=== PATIENT | female | born 2000 | race Caucasian/White ===

== ENCOUNTER 2020-08-06 11:00 | Outpatient (RCR) | payer OTHER, SELFPAY | END 2020-10-18 13:44 | disposition other institution (70) | LOC: HO.PT 11:00 | PROVIDERS: PCP Pediatrics; Visit Provider Pediatrics | DX: M54.9 Dorsalgia, unspecified (principal) | CPT/HCPCS: 97110; 97112; 97140; 97161; 97164; 97530 ==

== ENCOUNTER 2021-01-12 21:19 | Emergency (ER) | payer OTHER, SELFPAY ==
[2021-01-12 21:22] VITALS: BP 139/95; PULSE 102; RESP 18; TEMP 37; O2SAT 100; BMI 33.8
[2021-01-13 00:13] VITALS: BP 142/96; PULSE 112; RESP 18; TEMP 36.9; O2SAT 99
--- NOTE | 2021-01-13 00:23 | PC.NURSE ---
IV ACCESS OBTAINED, PT AMB TO BATHROOM WITH STEADY GAIT TO OBTAIN URINE SAMPLE. AWAITING PRIMARY MD GREEN.
[2021-01-13 00:39] LABS: Basophils Percent Auto 0.3 % (0-2); Eosinophils Percent Auto 0.1 % (0-4); Hematocrit 37.6 % (37-47); Hemoglobin 12.5 g/dl (12.0-16.0); Imm Gran Abs Auto 0.03 X10*3/uL (0.00-0.03); Imm Gran Pct Auto 0.3 % (0.0-0.4); Lymphocytes Absolute Auto 1.5 X10*3/uL (1.2-4.9); Lymphocytes Percent Auto 12.1 % (20-40); MANUAL DIFF FLAG NO; Mean Corpuscular HGB Conc 33.2 g/dl (31.0-35.0); Mean Corpuscular Hemoglobin 28.2 pg (27.0-33.0); Mean Corpuscular Volume 84.7 fL (80-98); Mean Platelet Volume 9.4 fL (9.4-12.3); Monocytes Absolute Auto 0.9 X10*3/uL (0.1-1.2); Monocytes Percent Auto 7.4 % (2-11); Neutrophils Absolute Auto 9.6 X10*3/uL (2.0-8.3); Neutrophils Percent Auto 79.8 % (45-73); Platelet Count 335 X10*3/uL (160-400); Red Blood Count 4.44 X10*6/uL (4.20-5.50); Red Cell Distribution Width 12.2 % (11.0-16.0)
[2021-01-13] MEDS: 0.9 % Sodium Chloride 1,000 ML 999 ML IV (00:39)
[2021-01-13] MEDS: ondansetron HCL 4 MG/2 ML VIAL IVPUSH (00:39)
[2021-01-13] MEDS: Famotidine/PF 20 MG/2 ML VIAL IVPUSH (00:39)
[2021-01-13 00:41] LABS: Appearance Urine HAZY; Color Urine YELLOW; Glucose Urine UA NEG (NEG); Leukocyte Esterase Urine 1+ (NEG); Nitrite Urine NEG (NEG); Specific Gravity - Urine 1.025 (1.005-1.025); UACC Culture Trigger YES; Urine Blood NEG (NEG); Urine Ketones 15 MG/DL (NEG); Urine Protein 1+ MG/DL (NEG-TRACE)
[2021-01-13 00:42] LABS: UPreg QC Valid YES; Urine Pregnancy NEGATIVE (NEGATIVE)
--- NOTE | 2021-01-13 00:54 | ED_ITS ---
HPI - General Adult General Chief complaint: General Medical Stated complaint: n/v, not feeling well Time Seen by Provider: 01/13/21 00:30 Source: patient Mode of arrival: ambulatory Limitations: no limitations History of Present Illness HPI narrative: 20-year-old female here with complaints of nausea x 4 days with 3 episodes of vomiting over the last few days. No abdominal pain, diarrhea, constipation, fevers, chills, urinary symptoms. The patient tells me that nausea occurs after eating and is worsened if she lays flat. Related Data Previous Rx's Medication Instructions Recorded nitrofurantoin monohyd/m-cryst 100 mg PO Q12H 5 Days #10 cap 01/13/21 [Macrobid] omeprazole 40 mg PO DAILY #30 cap 01/13/21 ondansetron 4 mg PO Q6H PRN #10 tab 01/13/21 Allergies Allergy/AdvReac Type Severity Reaction Status Date / Time No Known Allergies Allergy Verified 01/12/21 21:22 Review of Systems Review of Systems: Yes all other systems are reviewed and are negative Constitutional: Constitutional: Reports no additional constitutional complaints, Denies body ache(s), Denies chills, Denies fever(s), Denies headache(s) and Denies weakness Eyes: Eyes: Reports no additional eye complaints and Denies change in vision ENT: Reports system reviewed and no additional complaints, except as documented, Denies dizziness, Denies headache(s), Denies nasal congestion, Denies nasal discharge and Denies neck pain Cardiovascular: Cardiovascular: Reports no additional cardiovascular complaints, Denies chest pain, Denies leg edema and Denies dyspnea Respiratory: Respiratory: Reports no additional respiratory complaints, Denies cough and Denies dyspnea Gastrointestinal: Gastrointestinal: Reports no additional gastrointestinal complaints, Denies abdominal pain, Denies diarrhea, Reports nausea and Reports vomiting Genitourinary: Genitourinary: Reports no additional female genitourinary complaints and Denies urinary incontinence Musculoskeletal: Musculoskeletal: Reports no additional musculoskeletal complaints, Denies back pain, Denies arthralgias, Denies joint swelling, Denies neck pain, Denies numbness and Denies tingling Integumentary/Breasts: Skin/Breast: Reports system reviewed and no additional complaints, except as docu and Denies rash Neurologic: Reports system reviewed and no additional complaints, except as documented, Denies Abnormal speech present, Denies dizziness, Denies headache(s), Denies numbness, Denies tingling and Denies weakness PMFSH Past Medical History Attestation statement: The following information was validated with the patient. Source: old records reviewed and nursing notes reviewed Medical History Anxiety Social History Social History Alcohol intake: never Patient Tobacco Use Status: Never used Tobacco Use of substances other than those prescribed or required for medical reasons: No Advance Directives: No Advance Directives Information Provided: No Advance Directives on File: No Patient : No Physical Exam Vital Signs: Vital Signs: Last Vital Signs Temp 98.4 F 01/13/21 00:13 Pulse 112 H 01/13/21 00:13 Resp 18 01/13/21 00:13 BP 142/96 H 01/13/21 00:13 Pulse Ox 99 01/13/21 00:13 Body Mass Index 33.8 Const: General: cooperative, healthy appearing, comfortable and no acute distress Orientation/consciousness: patient oriented x3 Limitations: no limitations HENMT: Head: Yes normal to inspection Ears: hearing grossly normal bilaterally General nose exam: Normal external nose present Face and sinus: Yes normal facial exam Mouth: Normal oral and palatal mucosa present Throat: Yes posterior oropharynx normal Eyes: General: appearance normal, both eyes and all related structures Pupils: Equal, round and reactive pupils present Neck: Neck: Yes normal visual inspection Chest: Chest palpation & inspection: normal inspection of the chest Resp: Effort & Inspection: normal respiratory effort Auscultation: clear to auscultation bilaterally Cardio: Rate: regular rate Rhythm: regular rhythm Peripheral pulses: Peripheral pulses 2+ throughout GI: Inspection: Yes normal to inspection Palpation (GI): Soft to palpation and nontender Auscultation: normal bowel sounds Back/Spine/Pelvis: Thoracic/Lumbar Spine: thoracic and lumbar spine normal to inspection Skin: General skin exam: no rashes or lesions noted Neuro: General: patient oriented x3, no focal motor deficits and normal sensation to monofilament Cranial nerves: Yes Equal, round and reactive pupils present Cognition (Neuro): normal cognition Speech: No Abnormal speech present Gait exam (Neuro): Normal gait present Motor exam (neuro): 5/5 motor strength present throughout Extrem: General: Yes normal to inspection Course Course Course Narrative: 20-year-old female here with complaints of nausea for 4 days with several episodes of vomiting but no associated abdominal pain. Will check labs, a UA, urine . Will give normal saline bolus, antiemetics and PPI and reassess -leukocytosis secondary to vomiting. 1330-labs otherwise are unremarkable. UA is consistent with a UTI. Will treat with course of antibiotics. Vomiting likely secondary to underlying GERD. Patient feeling improved after receiving a PPI, antiemetic and normal saline bolus while here in the emergency department. Refer to GI for further testing as needed. Reviewed worrisome signs and symptoms and when to return to the emergency department. Comfortable discharge home. Medical Decision Making MDM Narrative Medical decision making narrative: Gastritis, GERD, gastroenteritis, Medical Records Medical records reviewed: Yes I reviewed the patient's medical records. Lab Data Lab results reviewed: Yes I reviewed the patient's lab results. Result diagrams: 01/13/21 00:16 01/13/21 00:16 Labs: Lab Results 01/13/21 01/13/21 01/13/21 Range/Units 00:16 00:16 00:16 WBC 12.0 H (4.8-10.8) X10*3/uL RBC 4.44 (4.20-5.50) X10*6/uL Hgb 12.5 (12.0-16.0) g/dl Hct 37.6 (37-47) % MCV 84.7 (80-98) fL MCH 28.2 (27.0-33.0) pg MCHC 33.2 (31.0-35.0) g/dl RDW 12.2 (11.0-16.0) % Plt Count 335 (160-400) X10*3/uL MPV 9.4 (9.4-12.3) fL Immature Gran % (Auto) 0.3 (0.0-0.4) % Neut % (Auto) 79.8 H (45-73) % Lymph % (Auto) 12.1 L (20-40) % [place] % (Auto) 7.4 (2-11) % Eos % (Auto) 0.1 (0-4) % Baso % (Auto) 0.3 (0-2) % Lymph # (Auto) 1.5 (1.2-4.9) X10*3/uL [place] # (Auto) 0.9 (0.1-1.2) X10*3/uL Eos # (Auto) 0.0 (0.0-0.4) X10*3/uL Baso # (Auto) 0.0 (0.0-0.2) X10*3/uL Abs Immat Gran (auto) 0.03 (0.00-0.03) X10*3/uL Absolute Neuts (auto) 9.6 H (2.0-8.3) X10*3/uL Absolute Nucleated RBC 0.000 (0.0-0.012) X10*3/uL Nucleated RBC % (auto) 0.0 (0.0-0.2) /100WBC Sodium 141 (135-145) mmol/L Potassium 4.1 (3.3-5.1) mmol/L Chloride 109 H (96-108) mmol/L Carbon Dioxide 22 (22-29) mmol/L Anion Gap 14 (12-20) BUN 12 (9-16) mg/dL Creatinine 0.72 (0.5-1.4) mg/dL Estim Creat Clear Calc 125.1 Estimated GFR > 60 Random Glucose 97 (60-115) mg/dL Calcium 9.1 (8.4-10.2) mg/dL Total Bilirubin 0.2 (0.0-1.0) mg/dL Direct Bilirubin < 0.2 (0.0-0.5) mg/dL AST 17 (5-31) U/L ALT 9 (0-31) U/L Alkaline Phosphatase 98 (39-117) U/L Total Protein 7.4 (6.5-8.0) g/dL Albumin 4.6 (3.5-5.0) g/dL Lipase 21 (8-78) U/L Urine Color YELLOW Urine Appearance HAZY Urine pH 7.0 (5.0-8.0) Ur Specific [place] 1.025 (1.005-1.025) Urine Protein 1+ H (NEG-TRACE) MG/DL Urine Glucose (UA) NEG (NEG) MG/DL Urine Ketones 15 (NEG) MG/DL Urine Blood NEG (NEG) Urine Nitrite NEG (NEG) Ur Leukocyte Esterase 1+ H (NEG) Urine RBC 0 (0) /HPF Urine WBC 5-9 H (0-4) /HPF Ur Squamous Epith Cells 3+ /LPF Urine Bacteria 2+ /LPF Urine Mucus 2+ /LPF Urine Test (NEGATIVE) 01/13/21 Range/Units 00:17 WBC (4.8-10.8) X10*3/uL RBC (4.20-5.50) X10*6/uL Hgb (12.0-16.0) g/dl Hct (37-47) % MCV (80-98) fL MCH (27.0-33.0) pg MCHC (31.0-35.0) g/dl RDW (11.0-16.0) % Plt Count (160-400) X10*3/uL MPV (9.4-12.3) fL Immature Gran % (Auto) (0.0-0.4) % Neut % (Auto) (45-73) % Lymph % (Auto) (20-40) % [place] % (Auto) (2-11) % Eos % (Auto) (0-4) % Baso % (Auto) (0-2) % Lymph # (Auto) (1.2-4.9) X10*3/uL [place] # (Auto) (0.1-1.2) X10*3/uL Eos # (Auto) (0.0-0.4) X10*3/uL Baso # (Auto) (0.0-0.2) X10*3/uL Abs Immat Gran (auto) (0.00-0.03) X10*3/uL Absolute Neuts (auto) (2.0-8.3) X10*3/uL Absolute Nucleated RBC (0.0-0.012) X10*3/uL Nucleated RBC % (auto) (0.0-0.2) /100WBC Sodium (135-145) mmol/L Potassium (3.3-5.1) mmol/L Chloride (96-108) mmol/L Carbon Dioxide (22-29) mmol/L Anion Gap (12-20) BUN (9-16) mg/dL Creatinine (0.5-1.4) mg/dL Estim Creat Clear Calc Estimated GFR Random Glucose (60-115) mg/dL Calcium (8.4-10.2) mg/dL Total Bilirubin (0.0-1.0) mg/dL Direct Bilirubin (0.0-0.5) mg/dL AST (5-31) U/L ALT (0-31) U/L Alkaline Phosphatase (39-117) U/L Total Protein (6.5-8.0) g/dL Albumin (3.5-5.0) g/dL Lipase (8-78) U/L Urine Color Urine Appearance Urine pH (5.0-8.0) Ur Specific [place] (1.005-1.025) Urine Protein (NEG-TRACE) MG/DL Urine Glucose (UA) (NEG) MG/DL Urine Ketones (NEG) MG/DL Urine Blood (NEG) Urine Nitrite (NEG) Ur Leukocyte Esterase (NEG) Urine RBC (0) /HPF Urine WBC (0-4) /HPF Ur Squamous Epith Cells /LPF Urine Bacteria /LPF Urine Mucus /LPF Urine Test NEGATIVE (NEGATIVE) Discharge Plan Discharge Clinical Impression: UTI (urinary tract infection) GERD (gastroesophageal reflux disease) Qualifiers: Esophagitis presence: esophagitis presence not specified Qualified Code(s): K21.9 - Gastro-esophageal reflux disease without esophagitis Patient Disposition: Home, Self-Care Instructions: Urinary Tract Infection in Women (ED), Gastroesophageal Reflux Disease (ED) Additional Instructions: Increase fluids, rest [place] diet Do not eat within 30 minutes of laying down or sleeping Prescriptions: New omeprazole 40 mg capsule,delayed release(DR/EC) 40 mg PO DAILY Qty: 30 RF: 0 ondansetron 4 mg tablet,disintegrating 4 mg PO Q6H PRN (Reason: nausea and vomiting) Qty: 10 RF: 0 nitrofurantoin monohyd/m-cryst [Macrobid] 100 mg capsule 100 mg PO Q12H 5 Days Qty: 10 RF: 0 Referrals: Denys Phillips [Physician] - 2 days
[2021-01-13 00:55] LABS: Bacteria Urine 2+ /LPF; Mucus Urine 2+ /LPF; RBC Urine 0 /HPF (0); Squamous Epithelial Cell Urine 3+ /LPF
[2021-01-13 01:20] LABS: Alanine Aminotransferase 9 U/L (0-31); Albumin Level 4.6 g/dL (3.5-5.0); Alkaline Phosphatase 98 U/L (39-117); Anion Gap 14 (12-20); Aspartate Amino Transferase 17 U/L (5-31); Bilirubin Direct < 0.2 mg/dL (0.0-0.5); Bilirubin Total 0.2 mg/dL (0.0-1.0); Blood Urea Nitrogen 12 mg/dL (9-16); Calcium 9.1 mg/dL (8.4-10.2); Carbon Dioxide 22 mmol/L (22-29); Chloride 109 mmol/L (96-108); Creatinine Clr Calc Pharmacy 125.1; Estimated Glomerular Filt Rate > 60; Glucose Random 97 mg/dL (60-115); Lipase 21 U/L (8-78); Potassium 4.1 mmol/L (3.3-5.1); Sodium 141 mmol/L (135-145); Total Protein 7.4 g/dL (6.5-8.0)
== END 2021-01-13 02:04 | disposition home or self-care (01) ==
PROVIDERS: Emergency Provider Emergency Medicine Emergency Medical Services; PCP Pediatrics
DX: N39.0 Urinary tract infection, site not specified (principal); K21.9 Gastro-esophageal reflux disease without esophagitis; Z79.899 Other long term (current) drug therapy
CPT/HCPCS: 36415; 80048; 80076; 81001; 81003; 81025; 83690; 85025; 87086; 96361; 96374; 96375; 99284; J2405

== ENCOUNTER 2021-01-27 10:35 | Outpatient (REF) | payer OTHER, SELFPAY ==
[2021-01-28 11:37] LABS: BV Int Neg Control Negative (Negative); BV Int Pos Control Positive (Positive)
[2021-01-28 11:47] LABS: CT PCR NOT DETECTED (Not Detect.); NG PCR NOT DETECTED (Not Detect.)
== END 2021-01-27 10:36 | disposition home or self-care (01) ==
LOC: HO.LAB 10:35
PROVIDERS: Visit Provider Obstetrics & Gynecology
DX: Z11.3 Encounter for screening for infections with a predominantly sexual mode of transmission (principal); B37.3 Candidiasis of vulva and vagina
CPT/HCPCS: 87480; 87491; 87510; 87591; 87660; 99212

== ENCOUNTER 2021-05-04 09:43 | Outpatient (REF) | payer OTHER, SELFPAY | END 2021-05-04 09:44 | disposition home or self-care (01) | LOC: HO.LAB 09:43 | PROVIDERS: Visit Provider Internal Medicine | DX: Z20.822 Contact with and (suspected) exposure to COVID-19 (principal) | CPT/HCPCS: C9803; U0003; U0005 ==

== ENCOUNTER 2021-06-22 12:54 | Outpatient (REF) | payer OTHER, SELFPAY ==
[2021-06-23 10:17] LABS: BV Int Neg Control Negative (Negative); BV Int Pos Control Positive (Positive)
== END 2021-06-22 12:55 | disposition home or self-care (01) ==
LOC: HO.LAB 12:54
PROVIDERS: Visit Provider Advanced Practice Midwife
DX: Z12.4 Encounter for screening for malignant neoplasm of cervix (principal); N89.8 Other specified noninflammatory disorders of vagina; B37.3 Candidiasis of vulva and vagina; L73.8 Other specified follicular disorders; Z20.2 Contact with and (suspected) exposure to infections with a predominantly sexual mode of transmission
CPT/HCPCS: 87480; 87510; 87660; 88142; 99212

== ENCOUNTER 2021-09-08 09:03 | Outpatient (REF) | payer OTHER, SELFPAY ==
[2021-09-08 09:34] LABS: COVID-19 Test Negative (Negative)
== END 2021-09-08 09:04 | disposition home or self-care (01) ==
LOC: HO.LAB 09:03
PROVIDERS: Visit Provider Internal Medicine
DX: Z20.822 Contact with and (suspected) exposure to COVID-19 (principal)
CPT/HCPCS: 87635; C9803

== ENCOUNTER 2022-01-26 10:12 | Outpatient (REF) | payer OTHER, SELFPAY ==
[2022-01-29 13:43] LABS: TS Negative Control Passed; TS Panel A 0; TS Panel B 0; TS Positive Control Passed; TSpotTB Negative (Negative)
== END 2022-01-26 10:13 | disposition home or self-care (01) ==
LOC: HO.LAB 10:12
PROVIDERS: Visit Provider Physician Assistant
DX: Z11.1 Encounter for screening for respiratory tuberculosis (principal)
CPT/HCPCS: 36415; 86481

== ENCOUNTER 2022-03-07 08:21 | Emergency (ER) | payer OTHER, SELFPAY ==
[2022-03-07 08:24] VITALS: BP 130/69; PULSE 114; RESP 16; TEMP 38.1; O2SAT 96; BMI 33.7
--- NOTE | 2022-03-07 09:12 | ED_ITS ---
HPI - Fever General Chief Complaint: Fever Stated Complaint: high fever Time Seen by Provider: 03/07/22 09:06 Source: patient Mode of arrival: ambulatory Limitations: no limitations History of Present Illness HPI Narrative: 21-year-old female previously healthy here with 2 days of chills, subjective fevers, sore throat, headache. Patient has received 2 Pfizer vaccinations for COVID. She did have a sick contact exposure to someone with the flu. She denies any shortness of breath, chest pain, vomiting, diarrhea, abdominal pain, urinary symptoms, neck pain or stiffness. Related Data Home Medications Medication Instructions Recorded Confirmed omeprazole 40 mg capsule,delayed 40 mg PO DAILY 01/25/22 01/25/22 release Previous Rx's Medication Instructions Recorded omeprazole 40 mg capsule,delayed 40 mg PO DAILY #30 caps 01/13/21 release miconazole nitrate 2 % vaginal 1 appful vaginal BEDTIME 7 days 06/22/21 cream (Miconazole-7) #45 grams omeprazole 40 mg capsule,delayed 40 mg PO DAILY #30 caps 01/25/22 release Allergies Allergy/AdvReac Type Severity Reaction Status Date / Time No Known Allergies Allergy Verified 01/25/22 12:32 Review of Systems Review of Systems: Yes all other systems are reviewed and are negative Constitutional: Constitutional: Reports no additional constitutional complaints, Denies body ache(s), Reports chills, Reports fever(s), Reports headache(s) and Denies weakness Eyes: Eyes: Reports no additional eye complaints and Denies change in vision ENT: Reports system reviewed and no additional complaints, except as documented, Denies dizziness, Reports headache(s), Denies nasal congestion, Denies nasal discharge, Denies neck pain and Reports sore throat Cardiovascular: Cardiovascular: Reports no additional cardiovascular complaints, Denies chest pain, Denies leg edema and Denies dyspnea Respiratory: Respiratory: Reports no additional respiratory complaints, Denies cough and Denies dyspnea Gastrointestinal: Gastrointestinal: Reports no additional gastrointestinal complaints, Denies abdominal pain, Denies diarrhea, Denies nausea and Denies vomiting Genitourinary: Genitourinary: Reports no additional female genitourinary complaints and Denies urinary incontinence Musculoskeletal: Musculoskeletal: Reports no additional musculoskeletal complaints, Denies back pain, Denies arthralgias, Denies joint swelling, Denies neck pain, Denies numbness and Denies tingling Integumentary/Breasts: Skin/Breast: Reports system reviewed and no additional complaints, except as docu and Denies rash Neurologic: Reports system reviewed and no additional complaints, except as documented, Denies Abnormal speech present, Denies dizziness, Reports headache(s), Denies numbness, Denies tingling and Denies weakness [facility] Past Medical History Attestation statement: The following information was validated with the patient. Source: old records reviewed and nursing notes reviewed Medical History Anxiety Family History Family History Maternal Grandmother Diabetes Father HTN (hypertension) Mother HTN (hypertension) Social History Social History Alcohol intake: never Patient Tobacco Use Status: Never used Tobacco Advance Directives: No Advance Directives Information Provided: Yes Physical Exam Vital Signs: Vital Signs: Last Vital Signs Temp 100.5 F H 03/07/22 08:24 Pulse 114 H 03/07/22 08:24 Resp 16 03/07/22 08:24 BP 130/69 03/07/22 08:24 Pulse Ox 96 03/07/22 08:24 O2 Del Method 03/07/22 08:24 BMI result Body Mass Index 33.7 Const: General: cooperative, healthy appearing, comfortable and no acute distress Orientation/consciousness: patient oriented x3 Limitations: no limitations HEENT: Head: Yes normal to inspection Ears: hearing grossly normal bilaterally and TM's normal bilaterally General nose exam: Normal external nose present Face and sinus: Yes normal facial exam Mouth: Normal oral and palatal mucosa present Throat: Yes posterior oropharynx normal, Yes tonsils normal and Yes uvula midline Eyes: General: appearance normal, both eyes and all related structures Pupils: Equal, round and reactive pupils present Neck: Neck: Yes normal visual inspection, Yes full ROM, Yes no lymphadenopathy and Yes no meningeal signs Chest: Chest palpation & inspection: normal inspection of the chest Resp: Effort & Inspection: normal respiratory effort Auscultation: clear to auscultation bilaterally Cardio: Rate: regular rate Rhythm: regular rhythm Peripheral pulses: Peripheral pulses 2+ throughout GI: Inspection: Yes normal to inspection Palpation (GI): Soft to palpation and nontender Auscultation: normal bowel sounds Back/Spine/Pelvis: Thoracic/Lumbar Spine: thoracic and lumbar spine normal to inspection Skin: General skin exam: no rashes or lesions noted Neuro: General: patient oriented x3, no meningeal signs, no focal motor deficits and normal sensation to monofilament Cranial nerves: Yes Equal, round and reactive pupils present Cognition (Neuro): normal cognition Speech: No Abnormal speech present Gait exam (Neuro): Normal gait present Motor exam (neuro): 5/5 motor strength present throughout Extrem: General: Yes normal to inspection Course Course Course Narrative: COVID screen is positive. Flu screen is negative. Temp and heart rate improved with ibuprofen. Reviewed quarantine for home. Reviewed supportive care. Reviewed worrisome signs and symptoms of when to return to the emergency department. Comfortable discharge home. MDM - Fever MDM Narrative Medical decision making narrative: 21-year-old female here with URI symptoms for 2 days with associated tactile temps. On arrival patient has a low-grade fever with mild tachycardia. Her exam is otherwise normal. Will send flu and COVID testing. Will provide ibuprofen for her fever Medical Records Attestation: I reviewed the patient's medical records. Lab Data Attestation: I reviewed the patient's lab results. Labs: Lab Results 03/07/22 03/07/22 Range/Units 09:01 09:04 COVID-19 (KRISTEN) Positive A (Negative) COVID-19 Clin Com See Note Influenza Type A (JONELLE) Negative (Negative) Influenza Type B (JONELLE) Negative (Negative) Influenza A & B Note See Note Discharge Plan Discharge Clinical Impression: COVID Patient Disposition: Home, Self-Care Instructions: COVID-19 (Coronavirus Disease 2019) (ED) Additional Instructions: Alternate Motrin and Tylenol for pain or fever Increase fluids, rest Return for shortness of breath, chest pain Flu test is negative Prescriptions: No Action omeprazole 40 mg capsule,delayed release(DR/EC) 40 mg PO DAILY Qty: 30 0RF omeprazole 40 mg capsule,delayed release(DR/EC) 40 mg PO DAILY omeprazole 40 mg capsule,delayed release(DR/EC) 40 mg PO DAILY Qty: 30 0RF miconazole nitrate [Miconazole-7] 2 % cream 1 appful vaginal BEDTIME 7 Days Qty: 45 3RF Referrals: Po,Jassi Piper MD [Primary Care Provider] - 1 week (as needed) Stand Alone Forms: Work/School Release
[2022-03-07] MEDS: Ibuprofen 600 MG TABLET PO (09:13)
[2022-03-07 09:19] LABS: COVID-19 Test Positive (Negative)
[2022-03-07 09:29] LABS: IDNOW Serial# 9DD0AD1C; Influenza A Negative (Negative); Influenza B2 Negative (Negative)
[2022-03-07 10:31] VITALS: BP 118/71; PULSE 95; RESP 18; TEMP 37.3; O2SAT 98
== END 2022-03-07 10:36 | disposition home or self-care (01) ==
PROVIDERS: Emergency Provider Emergency Medicine; PCP Internal Medicine
DX: U07.1 COVID-19 (principal); R50.9 Fever, unspecified; Z79.899 Other long term (current) drug therapy
CPT/HCPCS: 87502; 87635; 99283

== ENCOUNTER 2022-03-13 10:16 | Outpatient (REF) | payer OTHER, SELFPAY ==
[2022-03-13 11:22] LABS: COVID-19 Test Negative (Negative); IDNOW Serial# 16C4AD1C
== END 2022-03-13 10:17 | disposition home or self-care (01) ==
LOC: HO.LAB 10:16
PROVIDERS: Visit Provider Internal Medicine
DX: Z20.822 Contact with and (suspected) exposure to COVID-19 (principal)
CPT/HCPCS: 87635; C9803

== ENCOUNTER 2022-03-16 11:42 | Outpatient (REF) | payer OTHER, SELFPAY ==
--- NOTE | ~2022-03-16 | XR_ITS ---
EXAMINATION: XR CHEST CLINICAL INFORMATION: Acute bronchitis. COMPARISON: None TECHNIQUE: 2 views of the chest were obtained. FINDINGS: Lungs are well-inflated and clear. Trachea is midline in position. No interstitial disease, consolidation or mass. No pleural effusion or pneumothorax. Cardiac silhouette and pulmonary vessels are normal in size. The mediastinum and jimmie have normal contour. The visualized bones, and upper abdomen, are unremarkable. XR/XR chest 2V IMPRESSION: Normal chest radiographs.
== END 2022-03-16 11:43 | disposition home or self-care (01) ==
LOC: HO.HMGCX 11:42
PROVIDERS: PCP Internal Medicine; Visit Provider Internal Medicine
DX: J20.9 Acute bronchitis, unspecified (principal)
CPT/HCPCS: 71046

== ENCOUNTER 2022-04-03 09:38 | Outpatient (REF) | payer OTHER, SELFPAY ==
[2022-04-03 11:21] LABS: COVID-19 Test Negative (Negative); IDNOW Serial# 55D5AD1C
== END 2022-04-03 09:39 | disposition home or self-care (01) ==
LOC: HO.LAB 09:38
PROVIDERS: Visit Provider Internal Medicine
DX: Z20.822 Contact with and (suspected) exposure to COVID-19 (principal)
CPT/HCPCS: 87635; C9803

== ENCOUNTER 2022-06-21 08:32 | Outpatient (REF) | payer OTHER, SELFPAY ==
[2022-06-21 08:54] LABS: MANUAL DIFF FLAG NO
[2022-06-21 09:23] LABS: Basophils Percent Auto 0.5 % (0-2); Eosinophils Absolute Auto 0.1 X10*3/uL (0.0-0.4); Eosinophils Percent Auto 1.8 % (0-4); Hematocrit 37.6 % (37.0-47.0); Imm Gran Abs Auto 0.02 X10*3/uL (0.00-0.03); Imm Gran Pct Auto 0.4 % (0.0-0.4); Lymphocytes Percent Auto 35.4 % (20-40); Mean Corpuscular HGB Conc 31.9 g/dl (31.0-35.0); Mean Corpuscular Volume 84.5 fL (80.0-98.0); Mean Platelet Volume 9.8 fL (9.4-12.3); Monocytes Absolute Auto 0.4 X10*3/uL (0.1-1.2); Monocytes Percent Auto 7.4 % (2-11); Neutrophils Absolute Auto 3.1 x10*3/uL (2.0-8.3); Neutrophils Percent Auto 54.5 % (45-73); Platelet Count 287 X10*3/uL (160-400); Red Blood Count 4.45 X10*6/uL (4.20-5.50); Red Cell Distribution Width 12.7 % (11.0-16.0); White Blood Count 5.7 X10*3/uL (4.8-10.8)
[2022-06-21 10:15] LABS: Vitamin B12 247 pg/mL (200-900)
[2022-06-21 10:16] LABS: Alanine Aminotransferase 7 U/L (0-31); Albumin Level 4.1 g/dL (3.5-5.0); Alkaline Phosphatase 80 U/L (39-117); Anion Gap 14 (12-20); Aspartate Amino Transferase 14 U/L (5-31); Bilirubin Total 0.2 mg/dL (0.0-1.0); Blood Urea Nitrogen 9 mg/dL (9-16); Calcium 9.1 mg/dL (8.4-10.2); Carbon Dioxide 24 mmol/L (22-29); Chloride 106 mmol/L (96-108); Estimated Glomerular Filt Rate > 60; Glucose Fasting 95 mg/dL (60-99); Potassium 4.3 mmol/L (3.3-5.1); Sodium 140 mmol/L (135-145); TSH reflex Free T4 1.01 uIU/mL (0.32-4.0); Total Protein 6.7 g/dL (6.5-8.0); Vitamin D 25-OH Total 7.2 ng/mL (>30)
== END 2022-06-21 08:33 | disposition home or self-care (01) ==
LOC: HO.LAB 08:32
PROVIDERS: PCP Nurse Practitioner Family; Visit Provider Nurse Practitioner Family
DX: Z76.89 Persons encountering health services in other specified circumstances (principal)
CPT/HCPCS: 36415; 80053; 82306; 82607; 82746; 84443; 85025

== ENCOUNTER 2022-08-22 08:53 | Outpatient (REF) | payer OTHER, SELFPAY ==
--- NOTE | ~2022-08-22 | US_ITS ---
EXAMINATION: MM DIAGNOSTIC DIGITAL BREAST TOMOSYNTHESIS, BILATERAL US DIAGNOSTIC ULTRASOUND BREAST, LEFT CLINICAL INFORMATION: 22-year-old female with prior reduction mammoplasty. Patient notes lump past year since surgery posterior upper outer quadrant. No prior breast imaging. No family history breast cancer. COMPARISON: None (current study represents initial baseline exam). TECHNIQUE: Ultrasound is initially performed targeted to the area of clinical concern upper outer breast. Patient is able to point to the area of concern at time of imaging. Grayscale imaging and color Doppler are performed without and with harmonics. Additional imaging of the left axilla was also performed. Subsequently, bilateral digital breast tomosynthesis is performed in both the craniocaudal and mediolateral oblique views along with computer-aided detection (CAD). Synthesized 2D images are generated from the tomosynthesis. FINDINGS: There are scattered areas of fibroglandular density (ACR BI-RADS breast composition Category b). There is a spiculated lesion in area of clinical concern posterior upper outer left breast around 2 cm diameter with some scattered internal calcifications. The remainder the breasts are unremarkable. There is some minor scarring consistent with the reduction mammoplasty. The right breast is unremarkable. The skin contours are smooth. No skin thickening or coarsening of the Fredi's ligaments. Ultrasound left breast demonstrates irregular hypoechoic mass in area of palpable concern posterior 2:30 position measuring approximately 1.5 x 2.0 cm. There are scattered specular echoes corresponding to the calcifications within the lesion. Posterior acoustic shadowing is present. Additional imaging of the left axilla demonstrates no lymphadenopathy. Several nodes are noted with normal manjeet architecture and color flow. Results are discussed with the patient at time of visit. Ultrasound-guided core biopsy of the left breast mass is recommended. Results and recommendation called to medical office supervisor (Radha) for Jerri Guallpa NP on 08/22/2022. US/US breast LT limited IMPRESSION: Left: -Irregular hypoechoic mass with shadowing and internal calcifications in area of palpable concern posterior upper outer left breast measuring around 1.5 x 2.0 cm. -Right: No mammographic evidence of malignancy. ASSESSMENT: BI-RADS 4: Suspicious RECOMMENDATION: Ultrasound-guided biopsy left breast.
== END 2022-08-22 08:54 | disposition home or self-care (01) ==
LOC: HO.MAMMO 08:53
PROVIDERS: PCP Nurse Practitioner Family; Visit Provider Nurse Practitioner Family
DX: N63.21 Unspecified lump in the left breast, upper outer quadrant (principal)
CPT/HCPCS: 76642; 77062; 77066

== ENCOUNTER 2022-08-25 08:47 | Outpatient (REF) | payer OTHER, SELFPAY ==
--- NOTE | ~2022-08-25 | US_ITS ---
PROCEDURE: US GUIDED BREAST BIOPSY, LEFT CLINICAL INFORMATION: Left breast lump COMPARISON: August 22, 2022 PROCEDURAL DETAILS: The details of the procedure, as well as the risks, benefits, and alternatives to the procedure were explained to the patient in detail and all of her questions were answered, after which written informed consent was obtained. Site and side were confirmed. Prior to the procedure, sonography revealed an irregularly marginated hypoechoic region to the 3:00 position left breast 12 cm from the nipple.. A time-out was performed, the lesion intended for biopsy was targeted, and the skin of the left breast was then prepped and draped in the usual sterile fashion. Using sonographic guidance, sterile technique, and 1% lidocaine without epinephrine for local anesthesia, multiple automated core biopsies were obtained through the targeted area with a 14G spring loaded Achieve core biopsy device. There was real-time confirmation of appropriate needle passage. Sampling was documented. At the completion of tissue sampling, a single open coil-shaped metallic clip was deposited at the biopsy site. SPECIMEN: An appropriate sample was obtained. US/US breast ndl core biopsy LT IMPRESSION: 1. No immediate significant complication from ultrasound-guided percutaneous biopsy left breast. 2. Ultrasound was used to localize and guide marker clip placement. 3. Final pathology results are pending. A separate report with final recommendations will be issued once these results are made available.
[2022-08-25] MEDS: Lidocaine HCl 1 % 20 ML VIAL 9 ML SUBCUT (10:54)
[2022-08-25] MEDS: Sodium Bicarbonate 8.4% 50 MEQ/50 ML VIAL SUBCUT (10:56)
== END 2022-08-25 08:48 | disposition home or self-care (01) ==
LOC: HO.MAMMO 08:47
PROVIDERS: PCP Nurse Practitioner Family; Visit Provider Surgery
DX: R92.8 Other abnormal and inconclusive findings on diagnostic imaging of breast (principal); N63.25 Unspecified lump in the left breast, overlapping quadrants
CPT/HCPCS: 19083; 88305; 99202; A4648

== ENCOUNTER → 2022-09-01 10:27 | Outpatient (BNVA) | payer OTHER, SELFPAY | PROVIDERS: PCP Nurse Practitioner Family; Referring Provider Nurse Practitioner Family; Visit Provider Surgery | DX: N63.21 Unspecified lump in the left breast, upper outer quadrant (principal); E27.8 Other specified disorders of adrenal gland; L73.8 Other specified follicular disorders; Z42.8 Encounter for other plastic and reconstructive surgery following medical procedure or healed injury | CPT/HCPCS: 99212 ==

== ENCOUNTER 2023-06-06 10:07 | Outpatient (AMB) | payer OTHER, SELFPAY ==
--- NOTE | 2023-06-06 10:09 | AM.OFFWIN_ITS ---
Intake Vital Signs 06/06/23 10:13 Height 5 ft BP 102/64 Blood Pressure Location Rt brachial Position Sitting Pulse 89 Pulse Source Pulse Oximeter Temp 97 F Temp Source Temporal Artery Scan Pulse Oximetry (%) 98 Oxygen Delivery Method Room Air Intake Visit Reasons: EP RT eye swollen allergy to eye drops Intake Note: Pt is here c/o allergic reaction to polymyxin b sulfate trimethoprim. Pt states her right eye is now swollen. Patient Tobacco Use Status: Never used Tobacco Allergies No Known Allergies Allergy (Verified 06/06/23 10:13) HPI HPI Comments History of Present Illness Details 23-year-old female presents with swellin g to right eye status post using polymyxin b sulfate trimethoprim she reports she was using these drops a few days ago for pinkeye, pinkeye improved however it just became swollen, she reports she just feels a heavy eyelid. No pain w/ eye movment, redneess or warmth surrounding r eye. Denies fevers, chills, headache, vision changes, dizziness, nausea, vomiting PE w/ slight swelling overlying R. eyelid no pain w/ EOM b/l. No overlying errythema or warmth to orbits b/l. No visualized fb in eye concerned for allergic reaction versus stye. Unlikely orbital / periorbital cellulitis, acute closed angle glaucoma, wet macular degeneration or foreign body in eye. Plan Discharge with Benadryl and prednisone. Educated patient on diagnosis and treatment plan, answered all question, patient verbalizes understanding. At this time patient will be discharged home, advised to return with new or worsening symptoms. Educated on worrisome signs and symptoms and when to return. At this time I feel comfortable discharge home. [facility] Medical History Encounter to establish care Acute bronchitis COVID Folliculitis barbae Anxiety Surgical History History of bilateral breast reduction surgery Family History Maternal Grandmother Diabetes Father HTN (hypertension) Mother HTN (hypertension) Social History Housing: House Alcohol intake: never Patient Tobacco Use Status: Never used Tobacco service: No Current occupational status: employed Cognitive needs: No Hearing needs: No Vision needs: Yes Female Reproductive History Menstrual Age of Menarche: 12 Review of Systems Const Details: Constitutional : No Weight loss, No Fever, No Chills, No Fatigue, No Malaise ENT/Mouth : No sore throat, No Rhinorrhea Eyes: No Eye Pain, + Swelling, No Redness Cardiovascular : No Chest Pain, No SOB, No Dyspnea on Exertion, No Orthopnea, No Edema, No Palpitations Respiratory : No Cough, No Sputum, No Wheezing Gastrointestinal : No Nausea, No Vomiting, No Diarrhea, No Constipation, No abdominal Pain, No Hematochezia, No Melena Genitourinary : No Dysuria, No Urinary Frequency, No Hematuria, Musculoskeletal : No joint pain, No Myalgias, No Joint Swelling Skin : No Skin Lesions, No rash Neuro : No Weakness, No Numbness, No Dizziness, No Headache Psych : No Anxiety/Panic, No Depression All other systems reviewed and are negative All systems reviewed & are unremarkable except as noted in HPI and below Physical Exam Vital Signs: Last Vital Signs Temp 97 F 06/06/23 10:13 Pulse 89 06/06/23 10:13 BP 102/64 06/06/23 10:13 Pulse Ox 98 06/06/23 10:13 Oxygen Delivery Method Room Air 06/06/23 10:13 vss Appearance: Alert.? Oriented X3.? No acute distress.? Head: Normocephalic, atraumatic, no step-offs or deformities Eyes: Pupils equal, round and reactive to light.? slight swelling overlying R. eyelid no pain w/ EOM b/l. No overlying errythema or warmth to orbits b/l. No visualized fb in eye Neck: Normal inspection.? Neck supple.? CVS: Normal heart rate and rhythm.? Pulses normal.? Respiratory: No respiratory distress.? Breath sounds normal.? Abdomen: Soft and nontender.? Skin: Skin warm and dry.? Normal skin color.? Normal skin turgor.? Extremities: No lower extremity edema.? No calf ttp. 5/5 strength to bilateral upper and lower extremities Neuro: Oriented X 3.? No motor deficit.? No sensory deficit. CN 2-12 intact Assessment & Plan Assessment & Plan (1) Eye swelling, right: Code(s): H57.89 - Other specified disorders of eye and adnexa Plan Take your medications as prescribed. If you were prescribed antibiotics today, it is important that you take your medication to their entirety, do not skip any doses, do not finish them early. Follow-up with your primary care provider this week. Return to the emergency department with new or worsening symptoms. Such as fevers, chills, chest pain, shortness of breath, nausea, vomiting, dizziness, headache, vision changes, lethargy In case of emergency call 911 Medications: New prednisone 60 mg (3 x 20 mg) PO DAILY 5 days 15 tabs 0RF diphenhydramine HCl (Benadryl) 25 mg PO TID PRN 20 caps 0RF allergy symptoms Coding Level of Care Code Est Pt Level 3 (96559) Diagnoses Eye swelling, right H57.89
[2023-06-06 10:13] VITALS: BP 102/64; PULSE 89; TEMP 36.1; O2SAT 98
== END 2023-06-06 11:25 | disposition home or self-care (01) ==
PROVIDERS: PCP Nurse Practitioner Family; Visit Provider Physician Assistant
DX: H57.89 Other specified disorders of eye and adnexa (principal)
CPT/HCPCS: 99213

== ENCOUNTER 2023-06-18 09:21 | Outpatient (AMB) | payer OTHER, SELFPAY ==
--- NOTE | 2023-06-18 11:35 | MHC.OFFWIV ---
Intake Vital Signs 06/18/23 11:39 Height 5 ft Weight 169 lb BMI 33.0 BP 100/60 Blood Pressure Location Rt brachial Position Sitting Pulse 96 Pulse Source Pulse Oximeter Temp 97.7 F Temp Source Temporal Artery Scan Pulse Oximetry (%) 98 Oxygen Delivery Method Room Air Intake Visit Reasons: EP Allergy reaction [phone] Intake Note: pt is here for allergy reaction in left eye. woke up this morning swollen Patient Tobacco Use Status: Never used Tobacco Allergies polymyxin B Allergy (Verified 06/18/23 11:57) Eye Swelling Medication List - Last Reconciled 06/18/23 by Mehnaz Cole, PIN INSERTER REGULATOR, SOCIAL GROUP WORKER diphenhydramine HCl (Benadryl) 25 mg PO TID PRN No Known Home Meds prednisone 60 mg (3 x 20 mg) PO DAILY 5 days Do you need a note to return to daycare/school/sports/work: No HPI EP Allergy reaction [phone] HPI Details Patient presents to walk-in clinic today for swelling to the left eye lid. She states this happened she last week to the right eye after administering some eyedrops for pinkeye. She states yesterday she felt some discomfort to the left eye so she used the same drops and awoke today with left eyelid swelling. Denies eye pain, headache, discharge from the eye or vision changes. Denies shortness of breath, difficulty swallowing or tongue swelling. [facility] Medical History Encounter to establish care Acute bronchitis COVID Folliculitis barbae Anxiety Surgical History History of bilateral breast reduction surgery Family History Maternal Grandmother Diabetes Father HTN (hypertension) Mother HTN (hypertension) Social History Housing: House Alcohol intake: never Patient Tobacco Use Status: Never used Tobacco service: No Current occupational status: employed Cognitive needs: No Hearing needs: No Vision needs: Yes Female Reproductive History Menstrual Age of Menarche: 12 Review of Systems Const All systems reviewed & are unremarkable except as noted in HPI and below Physical Exam Vital Signs: Last Vital Signs Temp 97.7 F 06/18/23 11:39 Pulse 96 11/27/23 11:39 BP 100/60 06/18/23 11:39 Pulse Ox 98 06/18/23 11:39 Oxygen Delivery Method Room Air 06/18/23 11:39 BMI result Body Mass Index 33.0 General: awake, alert, oriented. Answers questions appropriately. Fully engaged in examination. Skin: warm, dry, intact Cardiac: External chest normal in appearance. Respiratory: No cough, audible wheezing or stridor. Abdomen: without gross distension. MS: No obvious swelling or deformities. Neurological: Oriented to person, place, time and situation. Thought process intact. Psychiatric: Appropriate mood and affect. Good judgment and insight. Eyes Alignment and Position: alignment normal Eyelids: Yes eyelid abnormality (swelling left eyelid) Conjunctivae: conjunctivae normal Sclerae: sclerae normal Corneas: corneas normal Pupils: Equal, round and reactive pupils present Neuro Cranial nerves: Yes Equal, round and reactive pupils present Assessment & Plan Assessment & Plan (1) Allergic reaction: Code(s): T78.40XA - Allergy, unspecified, initial encounter Plan Discontinue antibiotic eye drops. Benadryl 25mg po TID prn Prednisone 60mg daily X 5 days Apply ice/cold compress as needed for discomfort or itching Avoid touching or rubbing the eye Follow up with pcp or return to clinic for any new or worsening symptoms. Medications: Refilled diphenhydramine HCl (Benadryl) 25 mg PO TID PRN 20 caps 0RF allergy symptoms prednisone 60 mg (3 x 20 mg) PO DAILY 5 days 15 tabs 0RF Coding Level of Care Code Est Pt Level 4 (63398) Diagnoses Allergic reaction T78.40XA
[2023-06-18 11:39] VITALS: BP 100/60; PULSE 96; TEMP 36.5; O2SAT 98; BMI 33.0
== END 2023-06-18 11:50 | disposition home or self-care (01) ==
PROVIDERS: PCP Nurse Practitioner Family; Visit Provider Registered Nurse Emergency
DX: T78.40XA Allergy, unspecified, initial encounter (principal); H02.846 Edema of left eye, unspecified eyelid
CPT/HCPCS: 99213

== ENCOUNTER 2023-06-28 10:49 | Outpatient (AMB) | payer OTHER, SELFPAY ==
--- NOTE | 2023-06-28 11:04 | A.OFFPC_ITS ---
Vital Signs 06/28/23 11:08 Height 5 ft Weight 168 lb 2 oz BMI 32.8 BP 100/68 Blood Pressure Location Lt brachial Position Sitting Pulse 103 H Pulse Source Pulse Oximeter Pulse Oximetry (%) 97 Oxygen Delivery Method Room Air Intake Visit Reasons: Swollen right eye Intake Note: Pt presents with swelling on the right side since yesterday, accompanied by dry eyes, indicative of an allergic reaction Dry Wall Installations Mechanic Required: No Accompanied by: Self / Same As Patient Allergies polymyxin B Allergy (Verified 06/28/23 11:21) Eye Swelling Medication List - Last Reconciled 06/28/23 by Onur Dempsey PA-C diphenhydramine HCl (Benadryl) 25 mg PO TID PRN Tobacco use date assessed: 06/28/23 HPI Swollen right eye HPI Details Patient is a 23-year-old female here today for problem visit. Two weeks ago she developed eye swelling and was diagnosed with bacterial conjunctivitis and given Polytrim. Unfortunately had allergic reaction to the eyedrops. She reports having a swollen right over the last 2 days. She did have a recent episode left eye swelling that she was seen at the walk-in clinic and received steroids and Benadryl for the possible allergic reaction. She reports her eye is mostly dry at night. She denies any pain or vision issues. She has changed her pillow sheets and eye makeup. [facility] Medical History Encounter to establish care Acute bronchitis COVID Folliculitis barbae Anxiety Surgical History History of bilateral breast reduction surgery Family History Maternal Grandmother Diabetes Father HTN (hypertension) Mother HTN (hypertension) Social History Housing: House Alcohol intake: never Patient Tobacco Use Status: Never used Tobacco service: No Current occupational status: employed Cognitive needs: No Hearing needs: No Vision needs: Yes Female Reproductive History Menstrual Age of Menarche: 12 Questionnaire Thrive Questionnaire Date Thrive assessed: 06/23/22 ALLISON-7 AMB Questionnaire ALLISON-7 Date ALLISON - 7 assessed: 03/24/22 Source: Developed by Drs. Denys Monk, Bia Mario, Paul Coyne and colleagues, with an educational laurie from [employer]. Review of Systems Const Denies headache(s) Eyes Denies loss of vision ENT Denies vertigo, Denies dizziness, Denies headache(s) and Denies sore throat Card Denies chest pain, Denies leg edema and Denies lightheadedness Resp Denies cough, Denies hemoptysis and Denies wheezing GI Denies abdominal pain, Denies melena, Denies constipation, Denies diarrhea and Denies vomiting Denies urinary frequency, Denies dysuria and Denies urinary urgency Musc Denies arthralgias, Denies joint swelling, Denies numbness and Denies tingling Neuro Denies Abnormal speech present, Denies behavioral changes, Denies vertigo, Denies dizziness, Denies headache(s), Denies loss of vision, Denies memory loss, Denies numbness and Denies tingling Psych Denies anxiety, Denies behavioral changes, Denies depression, Denies memory loss and Denies panic attacks Hesham/Lymph Denies easy bleeding and Denies easy bruising Aller/Immun Denies wheezing Physical exam (Primary Care) Vital Signs: Last Vital Signs Pulse 103 H 06/28/23 11:08 BP 100/68 06/28/23 11:08 Pulse Ox 97 06/28/23 11:08 Oxygen Delivery Method Room Air 06/28/23 11:08 BMI result Body Mass Index 32.8 Tobacco/Smoking Status: Tobacco use Status Tobacco use date assessed 06/28/23 06/28/23 11:16 Patient Tobacco Use Status Never used Tobacco 06/28/23 11:16 Thrive Assessment: Date of Thrive Assessment Date Thrive assessed 06/23/22 06/28/23 11:16 Const General: healthy appearing, no acute distress, alert and awake Nutritional Appearance: well nourished Orientation/consciousness: oriented to person, oriented to place and oriented to time HENMT Ears: TM's normal bilaterally General nose exam: Normal nasal mucous membranes and turbinates present Eyes Other: RIGHT EYE: UPPER LID EDEMA NOTED, NO WATER EAR PURULENT DISCHARGE NOTED Sclerae: sclerae normal Pupils: Equal, round and reactive pupils present Neck Neck: Yes no lymphadenopathy and Yes no JVD Thyroid: Thyroid normal Carotids: no bruits Resp Effort & Inspection: normal respiratory effort and not tachypneic Auscultation: no crackles, no rales, no rhonchi and no wheezes Cardio Rate: regular rate Rhythm: regular rhythm Heart sounds: no murmurs and normal S1 and S2 GI Palpation (GI): Soft to palpation, nontender, no hepatomegaly and no splenomegaly Auscultation: normal bowel sounds Skin General skin exam: no rashes or lesions noted and dry skin Neuro General: oriented to person, oriented to place and oriented to time Cranial nerves: Yes Equal, round and reactive pupils present Speech: No Abnormal speech present Gait exam (Neuro): Normal gait present Motor exam (neuro): no tremor noted Extrem Right upper extremity: full ROM Left upper extremity: full ROM Right lower extremity: full ROM; no edema Left lower extremity: full ROM; no edema Psych Mental Status: mental status grossly normal Speech and movement: Normal speech and movement present Affect: normal affect Attitude: cooperative Thought process: Normal thought process present Assessment and Plan Assessment & Plan (1) Allergic conjunctivitis: Code(s): H10.10 - Acute atopic conjunctivitis, unspecified eye Qualifiers: Laterality: right Qualified Code(s): H10.11 - Acute atopic conjunctivitis, right eye Plan: Patient with recurrent right eye swelling. She does report improved symptoms prednisone. Prior she was prescribed Polytrim eyedrops to which she has had an allergic reaction to. Has changed her eye makeup, pillow sheets ect. Will supply patient with 9 day prednisone taper, advised on antihistamine eyedrops, artificial tears and cool compress over the right eye. (2) Allergic reaction: Code(s): T78.40XA - Allergy, unspecified, initial encounter Qualifiers: Encounter type: initial encounter Qualified Code(s): T78.40XA - Allergy, unspecified, initial encounter (3) Screening for diabetes mellitus (DM): Code(s): Z13.1 - Encounter for screening for diabetes mellitus Orders: Orders Vitamin D 25-OH Total Today R79.89 - Other specified abnormal findings of blood chemistry Comprehensive Camilla. Panel Fast Today Z13.1 - Encounter for screening for diabetes mellitus Medications: New loratadine 10 mg PO BEDTIME 14 days 14 tabs 0RF H10.10 - Acute atopic conjunctivitis, unspecified eye prednisone Take 3 tablets x3 days, 2 tablets x3 days, 1 tablet x3 days 10 mg PO DIRECTED 9 days 18 tabs 0RF H10.10 - Acute atopic conjunctivitis, unspecified eye Coding Level of Care Code Est Pt Level 3 (25838) Diagnoses Allergic conjunctivitis of right eye H10.11 Laterality: right Allergic reaction, initial encounter T78.40XA Encounter type: initial encounter Screening for diabetes mellitus (DM) Z13.1
[2023-06-28 11:08] VITALS: BP 100/68; PULSE 103; O2SAT 97; BMI 32.8
== END 2023-06-28 11:39 | disposition home or self-care (01) ==
PROVIDERS: PCP Nurse Practitioner Family; Visit Provider Physician Assistant
DX: H10.11 Acute atopic conjunctivitis, right eye (principal); T78.40XA Allergy, unspecified, initial encounter; Z13.1 Encounter for screening for diabetes mellitus
CPT/HCPCS: 99213

== ENCOUNTER 2023-07-19 08:57 | Outpatient (REF) | payer OTHER, SELFPAY ==
[2023-07-19 14:03] LABS: CT PCR NOT DETECTED (Not Detect.); NG PCR NOT DETECTED (Not Detect.)
[2023-07-20 15:22] LABS: BV Int Neg Control Negative (Negative); BV Int Pos Control Positive (Positive)
== END 2023-07-19 08:58 | disposition home or self-care (01) ==
LOC: HO.LNP 08:57
PROVIDERS: PCP Nurse Practitioner Family; Visit Provider Advanced Practice Midwife
DX: N89.8 Other specified noninflammatory disorders of vagina (principal); B37.31 Acute candidiasis of vulva and vagina
CPT/HCPCS: 0353U; 87480; 87510; 87660; 99212

== ENCOUNTER 2023-07-19 08:57 | Outpatient (AMB) | payer OTHER, SELFPAY ==
[2023-07-19 09:21] VITALS: BP 114/70; BMI 32.7
--- NOTE | 2023-07-19 09:21 | MHC.OFFVIS ---
Intake Vital Signs 07/19/23 09:21 Height 5 ft Weight 167 lb 8.821 oz BMI 32.7 BP 114/70 Intake Visit Reasons: Vaginal discharge Statistical Machine Mechanic Required: No Information Interpreted: non-clinical & clinical Call Circuit Worker: Call Circuit Worker Present (Noreen Russell ARTURO) Accompanied by: Self / Same As Patient Allergies polymyxin B Allergy (Verified 07/19/23 09:22) Eye Swelling Is last menstrual period known: Yes Last menstrual period: 06/26/23 HPI HPI Comments History of Present Illness Details Patient is here today with concerns that she has a yeast infection, she used a OTC treatment yesterday, feeling better today. She denies any pelvic pain or urinary symptoms. Using condoms. [facility] Medical History Encounter to establish care Acute bronchitis COVID Folliculitis barbae Anxiety Surgical History History of bilateral breast reduction surgery Family History Maternal Grandmother Diabetes Father HTN (hypertension) Mother HTN (hypertension) Social History Housing: House Alcohol intake: never Patient Tobacco Use Status: Never used Tobacco service: No Current occupational status: employed Cognitive needs: No Hearing needs: No Vision needs: Yes Female Reproductive History Menstrual Age of Menarche: 12 Date of last menstrual period: 06/26/23 Review of Systems Const All systems reviewed & are unremarkable except as noted in HPI and below Physical Exam Vital Signs: Last Vital Signs BP 114/70 07/19/23 09:21 BMI result Body Mass Index 32.7 Const General: cooperative, healthy appearing and no acute distress Orientation/consciousness: patient oriented x3 GI Inspection: Yes normal to inspection Palpation (GI): Soft to palpation and Other GI palpation findings present (Nontender) Rectal Exam - Female: visual inspection normal General: Yes bladder normal to palpation External Female Exam: normal appearance of the urethra Speculum Exam - Vagina: normal appearance of the vagina, normal palpation, vaginal bleeding and other (clump of medication) Speculum Exam - Cervix: normal appearance of the cervix and normal palpation Bimanual exam- vagina & uterus: normal bimanual exam, normal palpation, uterine size normal, bladder normal to palpation, normal palpation, uterine shape normal and non-tender Bimanual Exam- Adnexa, other: normal adnexae OB/external & speculum: vaginal bleeding Neuro General: patient oriented x3 Assessment & Plan Assessment & Plan (1) Vaginal itching: Code(s): N89.8 - Other specified noninflammatory disorders of vagina Plan: Discussed: Most likely a yeast infection with initial treatment yesterday and in shown improvement will resolve. Await BV panel for results additional GC chlamydia taken today. Instructions: Clean with warm water, no soaps, scented products. Use a cool cloth to the area several times a day if swollen and/or uncomfortable. Wear loose, cotton underclothes, avoid tight outer clothing. Air when possible. No coitus until well healed. Complete all medications as prescribed. Await final pending results for any changes in the plan of care. Call the office if there is no improvement in 24-48hrs., or if worsening symptoms. Advised to schedule her annual exam. This note is constructed using voice recognition software. While every effort has been made to ensure accuracy, transcription typist errors may have been included. Coding Level of Care Code Est Pt Level 3 (73391) Diagnoses Vaginal itching N89.8
== END 2023-07-19 09:34 | disposition home or self-care (01) ==
LOC: HO.HWS 08:57
PROVIDERS: PCP Nurse Practitioner Family; Visit Provider Advanced Practice Midwife
DX: N89.8 Other specified noninflammatory disorders of vagina (principal)
CPT/HCPCS: 99213

== ENCOUNTER 2023-07-25 09:43 | Outpatient (AMB) | payer OTHER, SELFPAY ==
--- NOTE | 2023-07-25 09:53 | A.OFFVIS_ITS ---
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 Doing well with no concerns. Recently treated for yeast last month and the STD cultures were negative. She tries to eat healthy and stays active with exercise. Regular monthly menses. Currently is sexually active. Using condoms, does not want control. She denies vaginal itching and irritation. STI screening offered; she accepts. Denies family history of breast, ovarian or colon cancer. Last pap smear 2020, negative. 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 Sexual orientation: Straight/Heterosexual Gender identity: Female Cognitive needs: No Hearing needs: No Vision needs: Yes Female Reproductive History Menstrual Age of Menarche: 12 Duration of menses: 3-5 days Date of last menstrual period: 07/19/23 control method: none Total pregnancies: 0 Date of last pap smear: 06/22/21 (neg) Review of Systems Const All systems reviewed & are unremarkable except as noted in HPI and below Reports as per HPI Eyes Reports no additional complaints ENT Reports no additional complaints Card Reports no additional complaints Resp Reports no additional complaints GI Reports as per HPI and Reports no additional complaints Reports as per HPI Musc Reports no additional complaints Skin/Breast Reports as per HPI Neuro Reports no additional complaints Psych Reports no additional complaints Endo Reports no additional complaints Hesham/Lymph Reports no additional complaints Aller/Immun Reports no additional complaints Physical Exam Vital Signs: Last Vital Signs BP 98/56 L 07/25/23 09:54 BMI result Body Mass Index 33.6 Const General: cooperative, healthy appearing, no acute distress, well developed and alert Orientation/consciousness: patient oriented x3 HEENT Head: Yes normal to inspection Eyes General: appearance normal, both eyes and all related structures Neck Neck: Yes normal visual inspection Thyroid: Thyroid normal Chest Other: Bilateral breast reduction scarring Chest palpation & inspection: normal inspection of the chest and other (no puckering, dimpling, peau de orange, retraction, discharge, masses) Breast/axilla inspection: normal inspection of the breasts Breast/axilla palpation: normal palpation of the breasts Resp Effort & Inspection: normal respiratory effort GI Inspection: Yes normal to inspection Palpation (GI): Soft to palpation Rectal Exam - Female: deferred General: Yes bladder normal to palpation External Female Exam: normal external appearance and normal appearance of the urethra Speculum Exam - Vagina: normal appearance of the vagina, normal palpation and normal vaginal discharge Speculum Exam - Cervix: normal appearance of the cervix and normal palpation Bimanual exam- vagina & uterus: normal bimanual exam, normal palpation, uterine size normal, bladder normal to palpation, normal palpation and non-tender Bimanual Exam- Adnexa, other: no masses Skin General skin exam: no rashes or lesions noted Rashes: no rashes Neuro General: patient oriented x3 Cognition (Neuro): normal cognition Extrem General: Yes normal to inspection Psych Attitude: cooperative Thought process: Normal thought process present Assessment & Plan Assessment & Plan (1) Encounter for well woman exam with routine gynecological exam: Code(s): Z01.419 - Encounter for gynecological examination (general) (routine) without abnormal findings Plan Discussed: Current recommendations for pap smears per ASCCP guidelines. Breast awareness and periodic breast exams. Maintain a healthy lifestyle including a well balanced diet and routine exercise. Use condoms for STI and prevention. Discussed control options if interested advised to call back for a follow-up appointment. All of her questions and concerns were addressed to the best of my ability. RTO in one year for annual medication nurse examination. This note is constructed using voice recognition software. While every effort has been made to ensure accuracy, auto body builder apprentice errors may have been included. Orders: Orders Pap Smear Today Z01.419 - Encounter for gynecological examination (general) (routine) without abnormal findings HIV Ab/Ag Today Z20.2 - Contact with and (suspected) exposure to infections with a predominantly sexual mode of transmission Syphilis Screen Today Z20.2 - Contact with and (suspected) exposure to infections with a predominantly sexual mode of transmission Hepatitis C Antibody Today Z20.2 - Contact with and (suspected) exposure to infections with a predominantly sexual mode of transmission Hepatitis B Core Antibody Today Z20.2 - Contact with and (suspected) exposure to infections with a predominantly sexual mode of transmission Coding Level of Care Code Est Pt Prev Care 18-39y(28866) Diagnoses Encounter for well woman exam with routine gynecological exam Z01.419
[2023-07-25 09:54] VITALS: BP 98/56; BMI 33.6
== END 2023-07-25 10:22 | disposition home or self-care (01) ==
PROVIDERS: PCP Nurse Practitioner Family; Visit Provider Advanced Practice Midwife
DX: Z01.419 Encounter for gynecological examination (general) (routine) without abnormal findings (principal)
CPT/HCPCS: 99395

== ENCOUNTER 2023-07-25 09:43 | Outpatient (REF) | payer OTHER, SELFPAY | END 2023-07-25 09:44 | disposition home or self-care (01) | LOC: HO.LNP 09:43 | PROVIDERS: PCP Nurse Practitioner Family; Visit Provider Advanced Practice Midwife | DX: Z01.419 Encounter for gynecological examination (general) (routine) without abnormal findings (principal); Z11.51 Encounter for screening for human papillomavirus (HPV); Z20.2 Contact with and (suspected) exposure to infections with a predominantly sexual mode of transmission | CPT/HCPCS: 88142; 99395 ==

== ENCOUNTER 2023-08-08 10:35 | Outpatient (AMB) | payer OTHER, SELFPAY ==
[2023-08-08 10:54] VITALS: BP 100/60; BMI 34.0
--- NOTE | 2023-08-08 10:54 | MHC.PC.OV ---
Vital Signs 08/08/23 10:54 Height 5 ft Weight 174 lb BMI 34.0 BP 100/60 Blood Pressure Location Lt brachial Position Sitting Intake Visit Reasons: atopic dermatitis Intake Note: Patient here for atopic dermatitis Sales Performance Analyst Required: No Accompanied by: Self / Same As Patient Allergies polymyxin B Allergy (Verified 08/08/23 11:07) Eye Swelling Medication List - Last Reconciled 08/08/23 by Rosalinda Ceballos MD No Known Home Meds Tobacco use date assessed: 08/08/23 Dental Screening Dental Screen Date: 08/08/23 Did you have a dental visit in the last 12 months?: No Did you have a dental problem in the last 6 months where you did not have access to dental care?: No Was dental information given to patient?: Patient has dentist HPI HPI Comments History of Present Illness Details This is a 23-year-old female that complains of eczema in her hands that has been bothering her. There is redness and dryness complicated with some itchiness. She also has nasal congestion and dry cough that started about 2 days ago. No fever. 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 1. Little interest or pleasure in doing things: not at all 2. Feeling down, depressed, or hopeless: not at all 3. Trouble falling or staying asleep, or sleeping too much: not at all 4. Feeling tired or having little energy: not at all 5. Poor appetite or overeating: not at all 6. Feeling bad about yourself - or that you are a failure or have let yourself or your family down: not at all 7. Trouble concentrating on things, such as reading the newspaper or watching television: not at all 8. Moving or speaking so slowly that other people could have noticed. Or the opposite - being so fidgety or restless that you have been moving around a lot more than usual: not at all 9. Thoughts that you would be better off or of hurting yourself in some way: not at all Total score: 0 Depression Screening Interpretation: Negative Depression Screening Done: Yes 61150 - PHQ-9 Billing: Yes Source: Developed by Drs. Denys Monk, Bia Mario, Paul Coyne and colleagues, with an educational laurie from [employer]. Thrive Questionnaire Date Thrive assessed: 08/08/23 I am a: Patient What is your living situation today?: I have a steady place to live Within the past 12 months, did the food you bought not last and you didn't have the money to get more?: Never true Within the past 12 months, did you worry whether your food would run out before you got money to buy more?: Never true Do you have trouble paying for medicines?: No Do you have trouble getting transportation to medical appointments?: No Do you have trouble paying your heating and electricity bill?: No Do you have trouble taking care of your child, family member or friend?: No Do you have trouble with day-to-day activities such as bathing, preparing meals, shopping, managing finances, etc.?: No Are you currently unemployed and looking for a job?: No Are you interested in more education?: No Please select the resources that you would like help with: None AUDIT C Alcohol Use Questionnaire (AUDIT-C) 1. How often do you have a drink containing alcohol?: Never Total Score: 0 ALLISON-7 AMB Questionnaire ALLISON-7 Date ALLISON - 7 assessed: 08/08/23 Feeling nervous, anxious, or on edge: 1 = Several days Not being able to stop or control worryin = Not at all Worrying too much about different things: 0 = Not at all Trouble relaxin = Several days Being so restless that it is hard to sit still: 0 = Not at all Becoming easily annoyed or irritable: 0 = Not at all Feeling afraid as if something awful might happen: 1 = Several days Total ALLISON-7 score (0-4 normal; 5-9 mild; 10-14 moderate; 15-21 severe): 3 Source: Developed by Drs. Denys Monk, Bia Mario, Paul Coyne and colleagues, with an educational laurie from [employer]. ALLISON-7 Assessment Billing ALLISON-7 Assessment Tool: ALLISON-7 Assessment 82832 Review of Systems Const All systems reviewed & are unremarkable except as noted in HPI and below Eyes Reports no additional complaints, Denies change in vision and Denies other visual disturbances Card Denies chest pain at rest, Denies chest pain with activity, Denies edema, Denies irregular heart rhythm, Denies claudication, Denies dyspnea, Denies dyspnea on exertion, Denies orthopnea, Denies paroxysmal nocturnal dyspnea and Denies slow heart rate Resp Denies cough, Denies dyspnea and Denies dyspnea on exertion GI Denies abdominal pain, Denies change in bowel habits, Denies excessive flatus, Denies nausea and Denies vomiting Denies urinary incontinence, Denies urinary hesitancy and Denies urinary urgency Musc Denies atrophy, Denies deformity and Denies limited range of motion Skin/Breast Reports dry skin and Reports erythema Physical exam (Primary Care) Vital Signs: Last Vital Signs BP 100/60 08/08/23 10:54 BMI result Body Mass Index 34.0 Tobacco/Smoking Status: Tobacco use Status Tobacco use date assessed 08/08/23 08/08/23 10:59 Patient Tobacco Use Status Never used Tobacco 08/08/23 10:59 e-Cigarette/Vaping Use Never Used 08/08/23 10:59 PHQ-9: PHQ-9 Score PHQ-9: Total score 0 08/08/23 11:09 Depression Screening Interpretation: Negative Thrive Assessment: Date of Thrive Assessment Date Thrive assessed 08/08/23 08/08/23 10:59 Eyes General: appearance normal, both eyes and all related structures Eyelids: Yes eyelids normal Conjunctivae: conjunctivae normal Neck Neck: Yes normal visual inspection and Yes supple Resp Effort & Inspection: normal respiratory effort Auscultation: clear to auscultation bilaterally Cardio Jugular venous distension: no JVD Rate: regular rate Rhythm: regular rhythm Heart sounds: S1 normal heart sound present and S2 normal heart sound present Skin Other: Redness and dry skin in hands Extrem General: Yes full ROM Assessment and Plan Assessment & Plan (1) Eczema: Code(s): L30.9 - Dermatitis, unspecified Plan: Start steroid ointment. (2) URI (upper respiratory infection): Code(s): J06.9 - Acute upper respiratory infection, unspecified Plan: COVID, flu and RSV ordered. Orders: Orders SARS-CoV2/FLU/RSV Today R09.89 - Other specified symptoms and signs involving the circulatory and respiratory systems Medications: New betamethasone dipropionate 0.05% 1 appl topical DAILY 2 weeks PRN 15 grams 1RF skin irritation L30.9 - Dermatitis, unspecified Coding Level of Care Code Tele Est Pt Level 3 (30194) Diagnoses Eczema L30.9 URI (upper respiratory infection) J06.9 Additional Codes ALLISON-7 Assessment Billing - ALLISON-7 Assessment Tool: ALLISON-7 Assessment 75387 ([id number]) Time Spent (min) 19
== END 2023-08-08 11:14 | disposition home or self-care (01) ==
PROVIDERS: PCP Nurse Practitioner Family; Visit Provider Internal Medicine
DX: L30.9 Dermatitis, unspecified (principal); J06.9 Acute upper respiratory infection, unspecified
CPT/HCPCS: 99213

== ENCOUNTER 2023-08-08 11:19 | Outpatient (REF) | payer OTHER, SELFPAY ==
[2023-08-08 12:54] LABS: Influenza A PCR NEGATIVE (Negative); Influenza B PCR NEGATIVE (Negative); Resp Syncy Virus RNA Qual PCR NEGATIVE (Negative); SARS COV2 PCR INHOUSE POSITIVE (Negative)
== END 2023-08-08 11:20 | disposition home or self-care (01) ==
LOC: HO.LAB 11:19
PROVIDERS: Visit Provider Internal Medicine
DX: R09.89 Other specified symptoms and signs involving the circulatory and respiratory systems (principal); Z11.52 Encounter for screening for COVID-19
CPT/HCPCS: 0241U

== ENCOUNTER 2023-09-27 09:58 | Outpatient (AMB) | payer OTHER, SELFPAY ==
--- NOTE | 2023-09-27 10:21 | MHC.PC.OV ---
Vital Signs 09/27/23 10:25 Height 5 ft Weight 175 lb 4 oz BMI 34.2 BP 104/74 Blood Pressure Location Lt brachial Position Sitting Respiration 16 Pulse 78 Pulse Source Pulse Oximeter Pulse Oximetry (%) 99 Oxygen Delivery Method Room Air Intake Visit Reasons: Transfer of care/[place] Intake Note: Pt is here for Transfer of Care from ADAPTED PHYSICAL EDUCATION AIDE [facility]. Freight Unloader Required: No Accompanied by: Self / Same As Patient Is last menstrual period known: Yes Last menstrual period: 09/15/23 Allergies polymyxin B Allergy (Verified 09/27/23 10:37) Eye Swelling Medication List - Last Reconciled 09/27/23 by Onur Dempsey PA-C hydroxyzine HCl 25 mg PO BID PRN Tobacco use date assessed: 08/08/23 HPI Transfer of care/[facility] HPI Details Patient is a 23-year-old female here today for transfer care visit. Previous PCP was [facility]APTED PHYSICAL EDUCATION AIDE Patient has a past medical history significant for eczema and allergies. .. Eczema: Does use a topical steroid as needed on areas of concern. Advised on moisturizing daily especially after showers. ,, Anxiety: Has been well controlled with only p.r.n. use of hydroxyzine. Has been able to manage her anxiety without daily medication. 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 1. Little interest or pleasure in doing things: not at all 2. Feeling down, depressed, or hopeless: not at all 3. Trouble falling or staying asleep, or sleeping too much: not at all 4. Feeling tired or having little energy: not at all 5. Poor appetite or overeating: not at all 6. Feeling bad about yourself - or that you are a failure or have let yourself or your family down: not at all 7. Trouble concentrating on things, such as reading the newspaper or watching television: not at all 8. Moving or speaking so slowly that other people could have noticed. Or the opposite - being so fidgety or restless that you have been moving around a lot more than usual: not at all 9. Thoughts that you would be better off or of hurting yourself in some way: not at all Total score: 0 Depression Screening Interpretation: Negative Depression Screening Done: Yes 90615 - PHQ-9 Billing: Yes Source: Developed by Drs. Denys Monk, Bia Mario, Paul Coyne and colleagues, with an educational laurie from [employer]. Thrive Questionnaire Date Thrive assessed: 08/08/23 I am a: Patient What is your living situation today?: I have a steady place to live Within the past 12 months, did the food you bought not last and you didn't have the money to get more?: Never true Within the past 12 months, did you worry whether your food would run out before you got money to buy more?: Never true Do you have trouble paying for medicines?: No Do you have trouble getting transportation to medical appointments?: No Do you have trouble paying your heating and electricity bill?: No Do you have trouble taking care of your child, family member or friend?: No Do you have trouble with day-to-day activities such as bathing, preparing meals, shopping, managing finances, etc.?: No Are you currently unemployed and looking for a job?: No Are you interested in more education?: No Please select the resources that you would like help with: None Currently or been in a relationship where the following occur: no concerns reported THRIVE Score: 0 AUDIT C Alcohol Use Questionnaire (AUDIT-C) 1. How often do you have a drink containing alcohol?: Never 3. How often do you have six or more drinks on one occasion?: Never Total Score: 0 ALLISON-7 AMB Questionnaire ALLISON-7 Date ALLISON - 7 assessed: 09/27/23 Feeling nervous, anxious, or on edge: 3 = Nearly every day Not being able to stop or control worryin = Nearly every day Worrying too much about different things: 3 = Nearly every day Trouble relaxin = Nearly every day Being so restless that it is hard to sit still: 3 = Nearly every day Becoming easily annoyed or irritable: 3 = Nearly every day Feeling afraid as if something awful might happen: 2 = More than half the days Total ALLISON-7 score (0-4 normal; 5-9 mild; 10-14 moderate; 15-21 severe): 20 Source: Developed by Drs. Denys Monk, Bia Mario, Paul Coyne and colleagues, with an educational laurie from [employer]. ALLISON-7 Assessment Billing ALLISON-7 Assessment Tool: ALLISON-7 Assessment 28307 Review of Systems Const Denies headache(s) Eyes Denies loss of vision ENT Denies vertigo, Denies dizziness, Denies headache(s) and Denies sore throat Card Denies chest pain, Denies leg edema and Denies lightheadedness Resp Denies cough, Denies hemoptysis and Denies wheezing GI Denies abdominal pain, Denies melena, Denies constipation, Denies diarrhea and Denies vomiting Denies urinary frequency, Denies dysuria and Denies urinary urgency Musc Denies arthralgias, Denies joint swelling, Denies numbness and Denies tingling Neuro Denies Abnormal speech present, Denies behavioral changes, Denies vertigo, Denies dizziness, Denies headache(s), Denies loss of vision, Denies memory loss, Denies numbness and Denies tingling Psych Denies anxiety, Denies behavioral changes, Denies depression, Denies memory loss and Denies panic attacks Hesham/Lymph Denies easy bleeding and Denies easy bruising Aller/Immun Denies wheezing Physical exam (Primary Care) Vital Signs: Last Vital Signs Pulse 78 09/27/23 10:25 Resp 16 09/27/23 10:25 BP 104/74 09/27/23 10:25 Pulse Ox 99 09/27/23 10:25 Oxygen Delivery Method Room Air 09/27/23 10:25 BMI result Body Mass Index 34.2 Tobacco/Smoking Status: Tobacco use Status Tobacco use date assessed 08/08/23 09/27/23 10:21 Patient Tobacco Use Status Never used Tobacco 09/27/23 10:21 e-Cigarette/Vaping Use Never Used 09/27/23 10:21 PHQ-9: PHQ-9 Score PHQ-9: Total score 0 09/27/23 10:28 Depression Screening Interpretation: Negative Thrive Assessment: Date of Thrive Assessment Date Thrive assessed 08/08/23 09/27/23 10:21 Currently or been in a relationship where the following occur: no concerns reported Const General: healthy appearing, no acute distress, alert and awake Nutritional Appearance: well nourished Orientation/consciousness: oriented to person, oriented to place and oriented to time HENMT Ears: TM's normal bilaterally General nose exam: Normal nasal mucous membranes and turbinates present Eyes Conjunctivae: conjunctivae normal Sclerae: sclerae normal Pupils: Equal, round and reactive pupils present Neck Neck: Yes no lymphadenopathy and Yes no JVD Thyroid: Thyroid normal Carotids: no bruits Resp Effort & Inspection: normal respiratory effort and not tachypneic Auscultation: no crackles, no rales, no rhonchi and no wheezes Cardio Rate: regular rate Rhythm: regular rhythm Heart sounds: no murmurs and normal S1 and S2 GI Palpation (GI): Soft to palpation, nontender, no hepatomegaly and no splenomegaly Auscultation: normal bowel sounds Skin General skin exam: no rashes or lesions noted and dry skin Neuro General: oriented to person, oriented to place and oriented to time Cranial nerves: Yes Equal, round and reactive pupils present Speech: No Abnormal speech present Gait exam (Neuro): Normal gait present Motor exam (neuro): no tremor noted Extrem Right upper extremity: full ROM Left upper extremity: full ROM Right lower extremity: full ROM; no edema Left lower extremity: full ROM; no edema Psych Mental Status: mental status grossly normal Speech and movement: Normal speech and movement present Affect: normal affect Attitude: cooperative Thought process: Normal thought process present Assessment and Plan Assessment & Plan (1) Eczema: Code(s): L30.9 - Dermatitis, unspecified Qualifiers: Eczema type: intrinsic Qualified Code(s): L20.84 - Intrinsic (allergic) eczema Plan: As per HPI patient does suffer from with a mild presentation of eczema. She does use topical cream on her areas of concern. Advised on moisturizing daily. (2) Anxiety: Code(s): F41.9 - Anxiety disorder, unspecified Plan: Patient's ALLISON-7 score positive for anxiety which has been existing condition for her. Patient reports her anxiety has been well controlled with only p.r.n. use hydroxyzine. Was seen by mental health therapist in the past has Medications: New hydroxyzine HCl 25 mg PO BID 15 days PRN 30 tabs 1RF anxiety F41.1 - Generalized anxiety disorder Coding Level of Care Code Est Pt Level 4 (93147) Diagnoses Intrinsic eczema L20.84 Eczema type: intrinsic Anxiety F41.9 Additional Codes ALLISON-7 Assessment Billing - ALLISON-7 Assessment Tool: ALLISON-7 Assessment 32140 ([id number])
[2023-09-27 10:25] VITALS: BP 104/74; PULSE 78; RESP 16; O2SAT 99; BMI 34.2
== END 2023-09-27 10:47 | disposition home or self-care (01) ==
PROVIDERS: PCP Nurse Practitioner Family; Visit Provider Physician Assistant
DX: L20.84 Intrinsic (allergic) eczema (principal); F41.9 Anxiety disorder, unspecified
CPT/HCPCS: 99214

== ENCOUNTER 2023-10-20 10:01 | Outpatient (AMB) | payer OTHER, SELFPAY ==
--- NOTE | 2023-10-20 10:54 | MHC.OFFWIV ---
Intake Vital Signs 10/20/23 10:55 Height 5 ft BP 106/74 Blood Pressure Location Rt brachial Position Sitting Pulse 101 H Pulse Source Pulse Oximeter Temp 99.2 F Temp Source Oral Pulse Oximetry (%) 98 Oxygen Delivery Method Room Air Intake Visit Reasons: Worsening cough (Lobby) Intake Note: pt had the flu but she is still coughing and she says she coughs so hard it is making her gag Patient Tobacco Use Status: Never used Tobacco Allergies polymyxin B Allergy (Verified 10/23/23 14:06) Eye Swelling HPI Worsening cough (Lobby) HPI Details Patient is a 23-year-old female comes to the walk-in clinic complaining of persistent coughing fits following diagnosis of influenza a few days ago. No report of taking Tamiflu. 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 Current occupational exposures/hazards: No Sexual orientation: Straight/Heterosexual Gender identity: Female Cognitive needs: No Hearing needs: No Vision needs: Yes Female Reproductive History Menstrual Age of Menarche: 12 Review of Systems Const All systems reviewed & are unremarkable except as noted in HPI and below Physical Exam Vital Signs: Last Vital Signs Temp 99.2 F 10/20/23 10:55 Pulse 101 H 10/20/23 10:55 BP 106/74 10/20/23 10:55 Pulse Ox 98 10/20/23 10:55 Oxygen Delivery Method Room Air 10/20/23 10:55 Const General: cooperative, comfortable, no acute distress, alert, awake, Physically active and well groomed; No anxious, diaphoretic, intoxicated appearing or poor hygiene Nutritional Appearance: average body habitus Orientation/consciousness: oriented to person Limitations: no limitations HEENT Head: Yes normal to inspection, Yes normocephalic and Yes atraumatic Ears: hearing grossly normal bilaterally, external ears normal, TM's normal bilaterally and EAC's normal General nose exam: Normal external nose present, Abnormal mucous membranes and turbinates present and Nasal discharge present Face and sinus: Yes normal facial exam, Yes sinuses nontender and Yes face symmetric Mouth: Normal oral and palatal mucosa present, lip normal, tongue normal and no trismus Throat: Yes uvula midline, Yes abnormal tonsil (mildly erythematous bilaterally), No peritonsillar mass, Yes postnasal drainage, No uvular edema and No cobblestoning Eyes General: appearance normal, both eyes and all related structures Chest Chest palpation & inspection: normal palpation of entire chest wall Resp Effort & Inspection: normal respiratory effort, able to speak in complete sentences, no audible wheezes, no grunting, not labored, no nasal flaring, no retractions and symmetric chest movement Auscultation: clear to auscultation bilaterally, no crackles, no rales, no rhonchi, no wheezes, lung sounds not diminished and No rub present Cardio Other: Rate 100 Rhythm: regular rhythm Skin Other: Good color, warm and dry Neuro General: oriented to person Psych Appearance: grossly normal Mental Status: mental status grossly normal Speech and movement: Normal speech and movement present Affect: normal affect Attitude: cooperative Thought process: Normal thought process present Insight: Good insight present (Psych) Judgement: Good judgement present (Psych) Assessment & Plan Assessment & Plan (1) Cough: Code(s): R05.9 - Cough, unspecified Qualifiers: Cough type: acute Qualified Code(s): R05.1 - Acute cough Plan: Patient is a 23-year-old female with apparent influenza, who comes to the walk-in clinic complaining of persistent coughing fits. She does have an occasional cough with low-grade temperature and she is mildly tachycardic but her lung sounds are clear without rhonchi or wheezing, and no labored or abnormal breathing. Chest x-ray was considered, but patient declines today. Due to her report of coughing until she is gagging, she might just be getting a thick phlegm in the oropharynx that is stimulating her gag reflex. She should continue Mucinex and adequate fluid intake. I did write her for course of prednisone due to her report of coughing until she vomits, as she might be starting to develop a reactive airway or tracheobronchitis. She can also trial benzonatate for the cough. She is to far into the course of her illness to be considered for Tamiflu at this point. She knows to follow up if symptoms persist or worsen, or go to the emergency department with worrisome symptoms. Orders: Orders SARS-CoV2/FLU/RSV 10/20/23 R05.9 - Cough, unspecified Medications: New benzonatate 200 mg PO BID-TID PRN 30 caps 0RF cough prednisone then take 3 tabs for 3 days, then 2 tabs for 3 days, then 1 tab for 3 days. 40 mg (4 x 10 mg) PO DAILY 30 tabs 0RF 3 days azithromycin take 500 mg today (day 1), then 250 mg for 4 days (days 2-5) PO 6 tabs 0RF Coding Level of Care Code Est Pt Level 4 (31939) Diagnoses Acute cough R05.1 Cough type: acute
[2023-10-20 10:55] VITALS: BP 106/74; PULSE 101; TEMP 37.3; O2SAT 98
== END 2023-10-20 13:06 | disposition home or self-care (01) ==
PROVIDERS: PCP Nurse Practitioner Family; Visit Provider Physician Assistant Medical
DX: R05.1 Acute cough (principal)
CPT/HCPCS: 99051; 99214

== ENCOUNTER 2023-10-20 13:37 | Outpatient (REF) | payer OTHER, SELFPAY ==
[2023-10-20 14:44] LABS: Influenza A PCR POSITIVE (Negative); Influenza B PCR NEGATIVE (Negative); Resp Syncy Virus RNA Qual PCR NEGATIVE (Negative); SARS COV2 PCR INHOUSE NEGATIVE (Negative)
== END 2023-10-20 13:38 | disposition home or self-care (01) ==
LOC: HO.LNP 13:37
PROVIDERS: Visit Provider Physician Assistant Medical
DX: R05.9 Cough, unspecified (principal); J06.9 Acute upper respiratory infection, unspecified
CPT/HCPCS: 0241U

== ENCOUNTER 2023-10-21 01:56 | Emergency (ER) | payer OTHER, SELFPAY ==
--- NOTE | ~2023-10-21 | XR_ITS ---
EXAMINATION: XR CHEST CLINICAL INFORMATION: Cough COMPARISON: 03/16/2022 TECHNIQUE: 2 views of the chest were obtained. FINDINGS: The lungs are clear with no focal consolidation. No evidence of pneumothorax, pulmonary edema, or pleural effusions. The cardiomediastinal silhouette is unremarkable. No acute osseous findings. XR/XR chest 2V IMPRESSION: No acute cardiopulmonary findings.
[2023-10-21 01:58] VITALS: BP 109/74; RESP 20; TEMP 37.5; O2SAT 99; BMI 32.5
--- NOTE | 2023-10-21 03:39 | ED_ITS ---
HPI - URI/Sore Throat General Chief Complaint: Upper Respiratory Symptoms Stated Complaint: cough Time Seen by Provider: 10/21/23 03:23 Source: patient Mode of arrival: ambulatory Limitations: no limitations History of Present Illness HPI Narrative: 23 yo female sick for 6 days just tested positive for FLU a at urgent care yesterday. They started her on prednisone, azithromycin she is only taking prednisone. She has no hx of asthma or reactive airways disease. She is here due to persistent cough that will not go away and she cannot sleep. She has chest wall pain and abdominal wall strain from it. No fevers since . Cough is dry and persistent. She is not a smoker. COVID and RSV negative MD elicited complaint: cough Onset (ago): day(s) (6) Consistency: intermittent Severity: moderate Description of mucous: clear Able to tolerate fluids by mouth: Yes Exacerbating factors: exertion Relieving factors: other (has not tried OTC medications, took prednisone) Context: other (dx with flu A) Associated symptoms: rhinorrhea, cough and shortness of breath Treatments prior to arrival: other (prednisone) Related Data Previous Rx's Medication Instructions Recorded hydroxyzine HCl 25 mg tablet 25 mg PO BID PRN anxiety 15 days 09/27/23 #30 tabs azithromycin 250 mg tablet See Rx Instructions PO .COMPLEX #6 10/20/23 tabs benzonatate 200 mg capsule 200 mg PO BID-TID PRN cough #30 10/20/23 caps prednisone 10 mg tablet 40 mg (4 x 10 mg) PO DAILY 3 days 10/20/23 #30 tabs codeine 10 mg-guaifenesin 100 mg/5 5 ml PO Q6H PRN cough #60 mL 10/21/23 mL oral liquid Allergies Allergy/AdvReac Type Severity Reaction Status Date / Time polymyxin B Allergy Eye Verified 10/21/23 02:09 Swelling Review of Systems Review of Systems: Constitutional : No Fever, No Chills ENT/Mouth : No Hoarseness, No sore throat, No Rhinorrhea Eyes: No Redness, No Discharge, No Vision Changes Cardiovascular : No Chest Pain, positive SOB, no Dyspnea on Exertion, No Edema Respiratory : positive Cough, No Sputum, no Wheezing, Gastrointestinal : No Nausea, No Vomiting, No Diarrhea, No abdominal Pain Genitourinary : No Dysuria, No Hematuria Musculoskeletal : No joint pain, No Myalgias Skin : No rash Neuro : No Weakness, No Numbness, No Headache All other systems reviewed and are negative [facility] Past Medical History Attestation statement: The following information was validated with the patient. 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 Oriented X3. No acute distress. Eyes: Pupils equal, round and reactive to light. ENT: Pharynx normal. Neck: Normal inspection. Neck supple. CVS: Normal heart rate and rhythm. Pulses normal. Respiratory: No respiratory distress. Breath sounds normal. no wheezes dry intermittent cough Abdomen: Soft and nontender. Skin: Skin warm and dry. Normal skin color. Normal skin turgor. Extremities: No lower extremity edema. No calf ttp Neuro: Oriented X 3. No motor deficit. No sensory deficit. Medical Decision Making Medical Decision Making MDM Narrative: 23 yo female with URI symptoms and dx with flu yesterday here with persistent cough - but otherwise states she is doing okay has no hx of smoking or asthma. No wheezes on exam, no focal consolidation on CXR will ask her to hold prednisone and start on anti tussive. she denies concern for . No hypoxia no toxic appearing cough is dry Differential Diagnosis Differential Diagnoses: The differential diagnosis associated with the presentation includes cough associated with flu, pneumonia Admission/Observation Consideration of admission/observation: Escalation of care including admission/observation considered no hypoxia not toxic Lab Data MDM Lab Attestation statement: I reviewed the patient's lab results. flu A yesterday Independent Interpretation I performed an independent interpretation of an: Plain X-Ray (no consolidation) Radiology Impression Discussion of test interpretation with radiology: I have reviewed the radiologist's reading. Independent Historian Clinical information obtained from an independent historian. History obtained from or confirmed by: Friend External Record Review External record reviewed: Office record Prescription Management I considered prescription management with: Other Discharge Plan Discharge Clinical Impression: Influenza Cough Qualifiers: Cough type: acute Qualified Code(s): R05.1 - Acute cough Patient Disposition: Home, Self-Care Instructions: Influenza (ED), Acute Cough (ED) Additional Instructions: take cough medication as needed. return for worsening symptoms, shortness of breathing, pain, or any other concerns. can stop the prednisone. Prescriptions: New codeine-guaifenesin 10-100 mg/5 mL liquid 5 ml PO Q6H PRN (Reason: cough) Qty: 60 0RF No Action hydroxyzine HCl 25 mg tablet 25 mg PO BID PRN (Reason: anxiety) 15 Days Qty: 30 1RF benzonatate 200 mg capsule 200 mg PO BID-TID PRN (Reason: cough) Qty: 30 0RF azithromycin 250 mg tablet See Rx Instructions PO .COMPLEX Qty: 6 0RF Rx Instructions: take 500 mg today (day 1), then 250 mg for 4 days (days 2-5) PO prednisone 10 mg tablet 40 mg PO DAILY 3 Days Qty: 30 0RF Rx Instructions: then take 3 tabs for 3 days, then 2 tabs for 3 days, then 1 tab for 3 days.
[2023-10-21] MEDS: guaiFEN/Codeine SF 200/20/10ML 10 ML LIQUID 5 ML PO (04:51)
[2023-10-21 04:58] VITALS: BP 116/70; PULSE 82; RESP 16; TEMP 37
== END 2023-10-21 05:01 | disposition home or self-care (01) ==
PROVIDERS: Emergency Provider Emergency Medicine
DX: J11.1 Influenza due to unidentified influenza virus with other respiratory manifestations (principal); R05.1 Acute cough
CPT/HCPCS: 71046; 99282; 99283

== ENCOUNTER 2023-10-23 13:56 | Outpatient (AMB) | payer OTHER, SELFPAY ==
--- NOTE | 2023-10-23 13:57 | A.OFFPC_ITS ---
Vital Signs 10/23/23 13:58 Height 5 ft 1 in Weight 172 lb 2 oz BMI 32.5 BP 100/56 L Blood Pressure Location Lt brachial Position Sitting Respiration 17 Pulse 88 Pulse Source Pulse Oximeter Pulse Oximetry (%) 98 Oxygen Delivery Method Room Air Intake Visit Reasons: flu/cough symptoms Intake Note: The patient is here due to a persistent cough after testing [place] for [place] [facility] [place], followed by a visit to urgent care for bronchitis. [employer] Required: No Accompanied by: Self / Same As Patient Allergies polymyxin B Allergy (Verified 10/23/23 14:06) Eye Swelling Medication List - Last Reconciled 10/23/23 by Onur Dempsey PA-C azithromycin take 500 mg today (day 1), then 250 mg for 4 days (days 2-5) PO codeine-guaifenesin 10-100 mg/5 mL 5 mL PO Q6H PRN codeine-guaifenesin 10-100 mg/5 mL 5 mL PO Q6H PRN hydroxyzine HCl 25 mg PO BID PRN 15 days Tobacco use date assessed: 08/08/23 Dental Screening Dental Screen Date: 08/08/23 HPI flu/cough symptoms HPI Details Patient is a 23-year-old female here today for an ER follow-up visit. Was recently diagnosed with the flu on October 19. She has been having a bronchial type cough. Was supply with prednisone, antibiotics and cough suppressant tablets. Patient reports she continues to a dry cough. Otherwise her fever has gone away. She has been codeine cough syrup by the ER Laboratory Tests 10/20/23 10:01 Influenza Type A ( PCR) POSITIVE A [facility] Medical History Encounter to establish care Acute bronchitis COVID Folliculitis barbae Anxiety Surgical History History of bilateral breast reduction surgery Family History Maternal Grandmother Diabetes Father HTN (hypertension) Mother HTN (hypertension) Social History Housing: House Alcohol intake: never Patient Tobacco Use Status: Never used Tobacco e-Cigarette/Vaping Use: Never Used Second Hand Smoke Exposure: No service: No Current occupational status: employed 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 Denys Monk, Bia Mario, Paul Coyne and colleagues, with an educational laurie from [employer]. Review of Systems Const Denies headache(s) Eyes Denies loss of vision ENT Denies vertigo, Denies dizziness, Denies headache(s) and Denies sore throat Card Denies chest pain, Denies leg edema and Denies lightheadedness Resp Reports cough and Denies wheezing GI Denies abdominal pain, Denies melena, Denies constipation, Denies diarrhea and Denies vomiting Denies urinary frequency, Denies dysuria and Denies urinary urgency Musc Denies arthralgias, Denies joint swelling, Denies numbness and Denies tingling Neuro Denies Abnormal speech present, Denies behavioral changes, Denies vertigo, Denies dizziness, Denies headache(s), Denies loss of vision, Denies memory loss, Denies numbness and Denies tingling Psych Denies anxiety, Denies behavioral changes, Denies depression, Denies memory loss and Denies panic attacks Hesham/Lymph Denies easy bleeding and Denies easy bruising Aller/Immun Denies wheezing Physical exam (Primary Care) Vital Signs: Last Vital Signs Pulse 88 10/23/23 13:58 Resp 17 10/23/23 13:58 BP 100/56 L 10/23/23 13:58 Pulse Ox 98 10/23/23 13:58 Oxygen Delivery Method Room Air 10/23/23 13:58 BMI result Body Mass Index 32.5 Tobacco/Smoking Status: Tobacco use Status Tobacco use date assessed 08/08/23 10/23/23 14:00 Patient Tobacco Use Status Never used Tobacco 10/23/23 14:00 e-Cigarette/Vaping Use Never Used 10/23/23 14:00 Thrive Assessment: Date of Thrive Assessment Date Thrive assessed 08/08/23 10/23/23 14:00 Const General: healthy appearing, no acute distress, alert and awake Nutritional Appearance: well nourished Orientation/consciousness: oriented to person, oriented to place and oriented to time HENMT Ears: TM's normal bilaterally General nose exam: Normal nasal mucous membranes and turbinates present Eyes Conjunctivae: conjunctivae normal Sclerae: sclerae normal Pupils: Equal, round and reactive pupils present Neck Neck: Yes no lymphadenopathy and Yes no JVD Thyroid: Thyroid normal Carotids: no bruits Resp Effort & Inspection: normal respiratory effort and not tachypneic Auscultation: no crackles, no rales, no rhonchi and no wheezes Cardio Rate: regular rate Rhythm: regular rhythm Heart sounds: no murmurs and normal S1 and S2 GI Palpation (GI): Soft to palpation, nontender, no hepatomegaly and no splenomegaly Auscultation: normal bowel sounds Skin General skin exam: no rashes or lesions noted and dry skin Neuro General: oriented to person, oriented to place and oriented to time Cranial nerves: Yes Equal, round and reactive pupils present Speech: No Abnormal speech present Gait exam (Neuro): Normal gait present Motor exam (neuro): no tremor noted Extrem Right upper extremity: full ROM Left upper extremity: full ROM Right lower extremity: full ROM; no edema Left lower extremity: full ROM; no edema Psych Mental Status: mental status grossly normal Speech and movement: Normal speech and movement present Affect: normal affect Attitude: cooperative Thought process: Normal thought process present Assessment and Plan Assessment & Plan (1) Influenza: Code(s): J11.1 - Influenza due to unidentified influenza virus with other respiratory manifestations Plan: Was positive for flu 10/20/2023. Has continued upper respiratory bronchitis. Advised on using cough suppressant tablets, rest, increase fluids Of note chest x-ray without any pulmonary infiltrate. (2) URI (upper respiratory infection): Code(s): J06.9 - Acute upper respiratory infection, unspecified Qualifiers: URI type: unspecified viral URI Qualified Code(s): J06.9 - Acute upper respiratory infection, unspecified Plan: As above Medications: New guaifenesin ER (Mucinex) 600 mg PO BID 14 tabs 0RF 7 days J06.9 - Acute upper respiratory infection, unspecified Coding Level of Care Code Est Pt Level 3 (25991) Diagnoses Influenza J11.1 Viral upper respiratory tract infection J06.9 URI type: unspecified viral URI
[2023-10-23 13:58] VITALS: BP 100/56; PULSE 88; RESP 17; O2SAT 98; BMI 32.5
== END 2023-10-23 15:13 | disposition home or self-care (01) ==
PROVIDERS: PCP Physician Assistant; Visit Provider Physician Assistant
DX: J06.9 Acute upper respiratory infection, unspecified (principal)
CPT/HCPCS: 99213

== ENCOUNTER 2024-01-02 15:07 | Outpatient (AMB) | payer OTHER, SELFPAY ==
--- NOTE | 2024-01-02 15:07 | AM.OFFWIN_ITS ---
Intake Vital Signs 01/02/24 15:09 Height 5 ft 1 in Weight 182 lb 2 oz BMI 34.4 BP 104/76 Blood Pressure Location Lt brachial Position Sitting Pulse 88 Pulse Source Pulse Oximeter Pulse Oximetry (%) 98 Oxygen Delivery Method Room Air Intake Visit Reasons: EP pain/pressure when urinating Patient Tobacco Use Status: Never used Tobacco Allergies polymyxin B Allergy (Verified 01/02/24 15:15) Eye Swelling Medication List - Last Reconciled 01/02/24 by Prabhjot Marroquin MD No Known Home Meds Do you need a note to return to daycare/school/sports/work: Yes HPI EP pain/pressure when urinating HPI Details 23-year-old female came in today to be e valuated for possible urine infection Patient says that since yesterday when she urinate she feels burning initially There is no pelvic pain, there is no back pain There is no nausea vomiting There is no fever no chills UA does not show any signs of infection There is a possibility of urethritis I have sent Macrobid 100 mg b.i.d. 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 Current occupational exposures/hazards: No Sexual orientation: Straight/Heterosexual Gender identity: Female Cognitive needs: No Hearing needs: No Vision needs: Yes Female Reproductive History Menstrual Age of Menarche: 12 Review of Systems Const All systems reviewed & are unremarkable except as noted in HPI and below Physical Exam Vital Signs: Last Vital Signs Pulse 88 01/02/24 15:09 BP 104/76 01/02/24 15:09 Pulse Ox 98 01/02/24 15:09 Oxygen Delivery Method Room Air 01/02/24 15:09 BMI result Body Mass Index 34.4 Const General: no acute distress Orientation/consciousness: patient oriented x3 Eyes General: appearance normal, both eyes and all related structures Resp Effort & Inspection: normal respiratory effort and able to speak in complete sentences General: Yes no CVA tenderness Back/Spine/Pelvis Back: no CVA tenderness Neuro General: patient oriented x3 Psych Mental Status: mental status grossly normal Assessment & Plan Assessment & Plan (1) Dysuria: Code(s): R30.0 - Dysuria Plan 23-year-old female came in today to be evaluated for possible urine infection Patient says that since yesterday when she urinate she feels burning initially There is no pelvic pain, there is no back pain There is no nausea vomiting There is no fever no chills UA does not show any signs of infection There is a possibility of urethritis I have sent Macrobid 100 mg b.i.d. for 3 days Medications: New nitrofurantoin monohyd/m-cryst 100 mg (Macrobid) must administer with a meal/food 100 mg PO Q12H 6 caps 0RF 3 days Coding Level of Care Code Est Pt Level 3 (64226) Diagnoses Dysuria R30.0
[2024-01-02 15:09] VITALS: BP 104/76; PULSE 88; O2SAT 98; BMI 34.4
== END 2024-01-02 15:23 | disposition home or self-care (01) ==
PROVIDERS: PCP Physician Assistant; Visit Provider Internal Medicine
DX: R30.0 Dysuria (principal)
CPT/HCPCS: 99213

== ENCOUNTER 2024-06-30 14:44 | Outpatient (AMB) | payer OTHER, SELFPAY ==
--- NOTE | 2024-06-30 15:00 | MHC.PC.OV ---
Vital Signs 06/30/24 15:01 Height 5 ft 1 in Weight 196 lb BMI 37.0 BP 130/70 Blood Pressure Location Rt brachial Position Sitting Pulse 92 Pulse Source Pulse Oximeter Pulse Oximetry (%) 98 Oxygen Delivery Method Room Air Intake Visit Reasons: F/U physical Intake Note: Patient is here today for a physical. Flute Teacher Required: No Hvac/R Instructor: Not Required per policy Accompanied by: Self / Same As Patient Allergies polymyxin B Allergy (Verified 06/30/24 15:19) Eye Swelling Medication List - Last Reconciled 06/30/24 by Brenda Schroeder PA-C No Known Home Meds Tobacco use date assessed: 06/30/24 Dental Screening Dental Screen Date: 08/08/23 Did you have a dental visit in the last 12 months?: No Was dental information given to patient?: Patient has dentist HPI F/U physical HPI Details 24 year old female with past history of GERD, anxiety, obesity, ALLISON last seen by PA coming in for annual exam. Today she tells us she has been using hydroxyzine as needed for anxiety and uses them very rarely. She is up-to-date on her Pap smears and follows with Gynecology regularly. She does mentioned she has increased constipation due to a poor diet. 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 1. Little interest or pleasure in doing things: not at all 2. Feeling down, depressed, or hopeless: not at all 3. Trouble falling or staying asleep, or sleeping too much: not at all 4. Feeling tired or having little energy: not at all 5. Poor appetite or overeating: not at all 6. Feeling bad about yourself - or that you are a failure or have let yourself or your family down: not at all 7. Trouble concentrating on things, such as reading the newspaper or watching television: not at all 8. Moving or speaking so slowly that other people could have noticed. Or the opposite - being so fidgety or restless that you have been moving around a lot more than usual: not at all 9. Thoughts that you would be better off or of hurting yourself in some way: not at all Total score: 0 Depression Screening Interpretation: Negative Depression Screening Done: Yes Source: Developed by Drs. Denys Monk, Bia Mario, Paul Coyne and colleagues, with an educational laurie from [employer]. Thrive Questionnaire Date Thrive assessed: 06/30/24 I am a: Patient What is your living situation today?: I choose not to answer this question Within the past 12 months, did the food you bought not last and you didn't have the money to get more?: I choose not to answer this question Within the past 12 months, did you worry whether your food would run out before you got money to buy more?: I choose not to answer this question Do you have trouble paying for medicines?: I choose not to answer this question Do you have trouble getting transportation to medical appointments?: I choose not to answer this question Do you have trouble paying your heating and electricity bill?: I choose not to answer this question Do you have trouble taking care of your child, family member or friend?: I choose not to answer this question Do you have trouble with day-to-day activities such as bathing, preparing meals, shopping, managing finances, etc.?: I choose not to answer this question Are you currently unemployed and looking for a job?: I choose not to answer this question Are you interested in more education?: I choose not to answer this question Please select the resources that you would like help with: Transportation and None Currently or been in a relationship where the following occur: I choose not to answer THRIVE Score: 0 AUDIT C Alcohol Use Questionnaire (AUDIT-C) 1. How often do you have a drink containing alcohol?: Never Total Score: 0 ALLISON-7 AMB Questionnaire ALLISON-7 Date ALLISON - 7 assessed: 06/30/24 Feeling nervous, anxious, or on edge: 0 = Not at all Not being able to stop or control worryin = Not at all Worrying too much about different things: 0 = Not at all Trouble relaxin = Not at all Being so restless that it is hard to sit still: 0 = Not at all Becoming easily annoyed or irritable: 0 = Not at all Feeling afraid as if something awful might happen: 0 = Not at all Total ALLISON-7 score (0-4 normal; 5-9 mild; 10-14 moderate; 15-21 severe): 0 Source: Developed by Drs. Denys Monk, Bia Mario, Paul Coyne and colleagues, with an educational laurie from [employer]. Review of Systems Const Denies body aches, Denies fatigue, Denies fever(s), Denies frequent falls, Denies headache(s) and Denies weakness Eyes Reports no additional complaints and Denies change in vision ENT Denies dysphagia, Denies dizziness, Denies facial pain, Denies headache(s), Denies nasal congestion and Denies odynophagia Card Denies chest pain, Denies syncope, Denies leg edema, Denies lightheadedness and Denies dyspnea Resp Denies cough and Denies dyspnea GI Denies abdominal pain, Reports constipation, Denies dysphagia, Denies dyspepsia, Denies diarrhea, Denies nausea, Denies odynophagia and Denies vomiting Denies urinary frequency, Denies dysuria, Denies urinary hesitancy and Denies urinary urgency Musc Denies back pain and Denies myalgias Skin/Breast Reports system reviewed and no additional complaints, except as documented Neuro Denies dizziness, Denies syncope, Denies frequent falls, Denies headache(s) and Denies weakness Psych Reports no additional complaints Endo Denies fatigue Physical exam (Primary Care) Vital Signs: Last Vital Signs Pulse 92 06/30/24 15:01 BP 130/70 06/30/24 15:01 Pulse Ox 98 06/30/24 15:01 Oxygen Delivery Method Room Air 06/30/24 15:01 BMI result Body Mass Index 37.0 Tobacco/Smoking Status: Tobacco use Status Tobacco use date assessed 06/30/24 06/30/24 15:08 Patient Tobacco Use Status Never used Tobacco 06/30/24 15:00 e-Cigarette/Vaping Use Never Used 06/30/24 15:00 PHQ-9: PHQ-9 Score PHQ-9: Total score 0 06/30/24 15:18 Depression Screening Interpretation: Negative Thrive Assessment: Date of Thrive Assessment Date Thrive assessed 06/30/24 06/30/24 15:08 Currently or been in a relationship where the following occur: I choose not to answer Const General: cooperative, healthy appearing, comfortable and no acute distress Orientation/consciousness: patient oriented x3 HENMT Head: Yes normocephalic Ears: hearing grossly normal bilaterally, external ears normal, TM's normal bilaterally and EAC's normal General nose exam: Normal external nose present Face and sinus: Yes normal facial exam and Yes sinuses nontender Mouth: Normal oral and palatal mucosa present and tongue normal Throat: Yes posterior oropharynx normal Eyes General: appearance normal, both eyes and all related structures Conjunctivae: conjunctivae normal Pupils: Equal, round and reactive pupils present EOM: EOMs intact bilaterally and No Nystagmus present Neck Neck: Yes normal visual inspection, Yes full ROM and Yes no lymphadenopathy Chest Chest palpation & inspection: normal inspection of the chest Resp Effort & Inspection: normal respiratory effort Auscultation: clear to auscultation bilaterally, no crackles, no rales, no rhonchi, no wheezes and breath sounds present Cardio Rate: regular rate Rhythm: regular rhythm Peripheral pulses: radial pulses present and dorsalis pedis present GI Inspection: Yes normal to inspection and No Abdominal wall edema Palpation (GI): Soft to palpation, not firm and nontender Auscultation: normal bowel sounds Rectal Exam - Female: deferred General: Yes no CVA tenderness Back/Spine/Pelvis Back: no CVA tenderness Skin General skin exam: no rashes or lesions noted Neuro General: patient oriented x3 Cranial nerves: Yes Equal, round and reactive pupils present, Yes Midline tongue present, Yes Ability to bilaterally elevate shoulders present and No Nystagmus present Gait exam (Neuro): Normal gait present Extrem General: Yes normal to inspection, Yes full ROM, No no pedal edema and No edema Psych Speech and movement: Normal speech and movement present Affect: normal affect Insight: Good insight present (Psych) Judgement: Good judgement present (Psych) Office Procedures Flu Questionnaire Does the patient have a severe egg allergy?: No Does the patient have severe life threatening allergies?: No Does the patient have a fever or illness today?: No Has the patient ever had Guillain-[place] Syndrome?: No Has the patient ever had any past reaction to a flu shot?: No Immunizations Fluarix Triv [id number] (PF) 45 mcg (15 mcg x 3)/0.5 mL IM syringe Performing Provider: Brenda Schroeder PA-C Performing [facility] [place] [facility] Administered by: MIKE Murphy on 06/30/24 15:18 Dose Route Admin Location Dispensed Lot Number Expiration Date NDC Health Physics Technician 0.5 mL IM Right Deltoid 0.5 mL [id number] 01/19/25 [id number] [employer] VIS Given Date VIS Provided VIS Publication Date 06/30/24 Single Vaccine 21 Eligibility Eligibility Date Funding Source Not [place] Eligible 06/30/24 Private Coding Level of Care Code Est Pt Prev Care 18-39y(11246) Diagnoses ALLISON (generalized anxiety disorder) F41.1 Adult general medical exam Z00.00 GERD (gastroesophageal reflux disease) K21.9 Obesity (BMI 30.0-34.9) E66.9 Constipation K59.00 Intrinsic eczema L20.84 Eczema type: intrinsic Assessment & Plan Assessment & Plan (1) ALLISON (generalized anxiety disorder): Code(s): F41.1 - Generalized anxiety disorder Category: Medical Plan: Continue to use hydroxyzine as needed declining a counselor at this time. (2) Adult general medical exam: Code(s): Z00.00 - Encounter for general adult medical examination without abnormal findings Category: Medical Plan: Patient is up-to-date on all recommended routine screenings and vaccinations for her age. Follow up yearly or sooner if new problems arise. Ordered for updated blood work and follow up sooner pending these results. (3) GERD (gastroesophageal reflux disease): Code(s): K21.9 - Gastro-esophageal reflux disease without esophagitis Category: Medical Plan: Avoid trigger foods such as citrus, tomato products, soda, caffeine, spicy foods and other foods that may be irritating to your stomach. Avoid laying flat 3-4 hours after eating and elevate the head of the bed 30 degrees to prevent acid from moving into the esophagus. (4) Obesity (BMI 30.0-34.9): Code(s): E66.9 - Obesity, unspecified Category: Medical Plan: Healthy diet and regular exercise is encouraged. (5) Constipation: Code(s): K59.00 - Constipation, unspecified Category: Medical Plan: Patient endorsing constipation typically has a bowel movement 2-3 times per week. Advised to increase fluid intake and trial [id number] fiber supplementation such as Metamucil or Benefiber (6) Eczema: Code(s): L30.9 - Dermatitis, unspecified Category: Medical Qualifiers: Eczema type: intrinsic Qualified Code(s): L20.84 - Intrinsic (allergic) eczema Plan: She has been using betamethasone cream as needed for her eczema. Advised to use topical emollients such as Aquaphor or Eucerin for maintenance therapy and do not exceed 2 weeks with the steroid cream. Plan This note was constructed using voice recognition software. While every effort has been made to ensure accuracy and data processing operator, still areas may have been included sometimes these areas may affect the content or meeting of the given symptoms. Total time spent caring for the patient today was 30 minutes. This includes time spent before the visit reviewing the chart, time spent during the visit, and time spent after the visit and documentation. Orders: Orders Comprehensive [place]. Panel Fast Today L98.9 - Disorder of the skin and subcutaneous tissue, unspecified Complete Blood Count Auto Diff Today Z00.00 - Encounter for general adult medical examination without abnormal findings Free T4 (Free Thyroxine) Today Z00.00 - Encounter for general adult medical examination without abnormal findings Vitamin B12 and Folate Today Z00.00 - Encounter for general adult medical examination without abnormal findings Vitamin D 25-OH Total Today Z00.00 - Encounter for general adult medical examination without abnormal findings Influenza [id number] Immunization Today Z23 - Encounter for immunization Lipid Panel Today E78.5 - Hyperlipidemia, unspecified TSH reflex Free T4 Today Z00.00 - Encounter for general adult medical examination without abnormal findings Medications: New hydroxyzine HCl 25 mg PO BID PRN 30 tabs 0RF anxiety Refilled betamethasone dipropionate 0.05% 1 appl topical DAILY 2 weeks PRN 15 grams 1RF skin irritation L30.9 - Dermatitis, unspecified
[2024-06-30 15:01] VITALS: BP 130/70; PULSE 92; O2SAT 98; BMI 37.0
== END 2024-06-30 15:33 | disposition home or self-care (01) ==
DX: Z00.00 Encounter for general adult medical examination without abnormal findings (principal); F41.1 Generalized anxiety disorder; Z68.37 Body mass index [BMI] 37.0-37.9, adult; E66.9 Obesity, unspecified; K21.9 Gastro-esophageal reflux disease without esophagitis; K59.00 Constipation, unspecified; L20.84 Intrinsic (allergic) eczema

== ENCOUNTER → 2024-06-30 14:44 | Outpatient (BNVA) | payer OTHER, SELFPAY | DX: Z00.00 Encounter for general adult medical examination without abnormal findings (principal); Z23 Encounter for immunization; F41.1 Generalized anxiety disorder; K21.9 Gastro-esophageal reflux disease without esophagitis; E66.9 Obesity, unspecified; K59.00 Constipation, unspecified; L20.84 Intrinsic (allergic) eczema | CPT/HCPCS: 90471; 90656; 96127; 99395 ==

== ENCOUNTER 2024-07-19 00:34 | Emergency (ER) | payer OTHER, SELFPAY ==
--- NOTE | ~2024-07-19 | XR_ITS ---
CLINICAL HISTORY: cough congestion since 12 17 Chest X-ray, 2 Views COMPARISON: CR/SR - XR CHEST 2V - 10/21/23 02:45 EDT FINDINGS: No consolidation. No pleural effusion. No pneumothorax. No cardiomegaly. No acute fracture. IMPRESSION: No acute findings. This document has been electronically signed by: Ruben Alcantara MD on 07/19/2024 01:23:01
[2024-07-19 00:42] VITALS: BP 156/91; PULSE 99; RESP 18; TEMP 36.6; O2SAT 98; BMI 37.9
[2024-07-19 01:31] LABS: COVID-19 Test Negative (Negative); IDNOW Serial# 55D5AD1C; IDNOW Serial# 58CA691E; Influenza A Negative (Negative); Influenza B2 Negative (Negative)
--- NOTE | 2024-07-19 02:04 | ED.URI ---
HPI - URI/Sore Throat General Chief Complaint: Upper Respiratory Symptoms Stated Complaint: flu like Time Seen by Provider: 07/19/24 01:56 Source: patient Mode of arrival: ambulatory Limitations: no limitations History of Present Illness ED Provider: Dr. Karina Lucero HPI Narrative: Patient comes to the emergency room complaining of cough. Patient states that she has been having cough for almost 2 weeks, states that she had a course of antibiotics, multiple tcqk-xyc-[id number] cough medications without any help. Patient denies history of asthma. Denies chest pain. Related Data Previous Rx's ?Medication ?Instructions ?Recorded hydroxyzine HCl 25 mg tablet 25 mg PO BID PRN anxiety #30 tabs 06/30/24 triamcinolone acetonide 0.1 % 1 appl topical DAILY #15 grams 07/02/24 topical cream benzonatate 100 mg capsule 100 mg PO TID PRN cough #15 caps 07/19/24 Allergies Allergy/AdvReac Type Severity Reaction Status Date / Time polymyxin B Allergy Eye Verified 07/19/24 00:44 Swelling Review of Systems Review of Systems: Constitutional : No Weight loss, No Fever, No Chills, No Night Sweats, No Fatigue, No Malaise ENT/Mouth : No Hearing loss, No Ear Pain, complaining of Nasal Congestion, No Sinus Pain, No Hoarseness, No sore throat, No Rhinorrhea, No Swallowing Difficulty Eyes: No Eye Pain, No Swelling, No Redness, No Foreign Body, No Discharge, No Vision Changes Cardiovascular : No Chest Pain, No SOB, No Dyspnea on Exertion, No Orthopnea, No Edema, No Palpitations Respiratory : Complaining of cough, No Sputum, No Wheezing, No Smoke Exposure, No Dyspnea Gastrointestinal : No Nausea, No Vomiting, No Diarrhea, No Constipation, No abdominal Pain, No Hematochezia, No Melena Genitourinary : no irregular bleeding, No Dysuria, No Urinary Frequency, No Hematuria, No Urinary Incontinence, No Urgency, No Flank Pain, No Urinary Flow Changes, No Hesitancy Musculoskeletal : No joint pain, No Myalgias, No Joint Swelling Skin : No Skin Lesions, No rash Neuro : No Weakness, No Numbness, No Paresthesias, No Loss of Consciousness, No Dizziness, No Headache Psych : No Anxiety/Panic, No Depression, No SI/HI/AH/VH, No Social Issues, Heme/Lymph: No Bruising, No Bleeding,No Lymphadenopathy Endocrine : No Polyuria, No Polydipsia, No Temperature Intolerance [facility] Past Medical History Medical History Encounter to establish care Acute bronchitis COVID Folliculitis barbae Anxiety Surgical History History of bilateral breast reduction surgery Family History Family History Maternal Grandmother Diabetes Father HTN (hypertension) Mother HTN (hypertension) Social History Social History Housing: House Alcohol intake: never Patient Tobacco Use Status: Never used Tobacco e-Cigarette/Vaping Use: Never Used Second Hand Smoke Exposure: No Advance Directives: No Advance Directives Information Provided: Yes Do you have a plan to hurt others: No Plan service: No Current occupational status: employed 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 Oriented X3. No acute distress. Eyes: Pupils equal, round and reactive to light. ENT: Pharynx normal. Neck: Normal inspection. Neck supple. No lymph nodes noted. No crepitus CVS: Normal heart rate and rhythm. Pulses normal. Normal S1 and S2 Respiratory: No respiratory distress. Breath sounds normal. No Wheezing. No rales Abdomen: Soft and nontender. No rigidity. No distention. Skin: Skin warm and dry. Normal skin color. Normal skin turgor. Extremities: No lower extremity edema. No Lacerations. No Rash Neuro: Oriented X 3. No motor deficit. No sensory deficit. Moving all extremities. No slurred speech. CN 2 through 12 grossly intact Psych: calm, cooperative, normal affect Medical Decision Making Medical Decision Making MDM Narrative: my interpretation of labs: Patient's serology report negative for influenza COVID. Chest x-ray negative for pneumonia Differential Diagnosis Differential Diagnoses: The differential diagnosis associated with the presentation includes ( bronchitis, pneumonia, influenza) Lab Data [facility] Lab Attestation statement: I reviewed the patient's lab results. Labs: Lab Results 07/19/24 Range/Units 00:59 COVID-19 (KRISTEN) Negative (Negative) COVID-19 Clin Com See Note Influenza Type A (JONELLE) Negative (Negative) Influenza Type B (JONELLE) Negative (Negative) Influenza A & B Note See Note Independent Interpretation I performed an independent interpretation of an: Plain X-Ray Radiology Impression Discussion of test interpretation with radiology: I have reviewed the radiologist's reading. Radiologist Impression: No consolidation. No pleural effusion. No pneumothorax. No cardiomegaly. No acute fracture. IMPRESSION: No acute findings Discharge Plan Discharge Clinical Impression: Acute viral bronchitis Patient Disposition: Home, Self-Care Instructions: Acute Bronchitis (ED) Additional Instructions: Please follow-up with your primary care physician tomorrow. If you have any worsening or new symptoms, please return to the emergency room or call 911 Prescriptions: New benzonatate 100 mg capsule 100 mg PO TID PRN (Reason: cough) Qty: 15 0RF No Action triamcinolone acetonide 0.1 % cream 1 appl topical DAILY Qty: 15 0RF hydroxyzine HCl 25 mg tablet 25 mg PO BID PRN (Reason: anxiety) Qty: 30 0RF Stand Alone Forms: Work/School Release Print Language: Malian
[2024-07-19] MEDS: Benzonatate 100 MG CAPSULE PO (02:41)
[2024-07-19 02:48] VITALS: BP 119/81; PULSE 88; RESP 16; TEMP 36.7; O2SAT 95
[2024-07-19 02:52] VITALS: BP 119/81; PULSE 88; RESP 16; TEMP 36.7; O2SAT 95
== END 2024-07-19 02:53 | disposition home or self-care (01) ==
PROVIDERS: Emergency Provider Emergency Medicine
DX: J20.8 Acute bronchitis due to other specified organisms (principal); R05.9 Cough, unspecified; Z03.818 Encounter for observation for suspected exposure to other biological agents ruled out
CPT/HCPCS: 71046; 87502; 87635; 99283; 99284

== ENCOUNTER → 2024-07-19 00:45 | Outpatient (BNV) | payer OTHER, SELFPAY | PROVIDERS: Emergency Provider Emergency Medicine; Visit Provider Radiology Diagnostic Radiology | DX: R05.9 Cough, unspecified (principal); R09.81 Nasal congestion | CPT/HCPCS: 71046 ==

== ENCOUNTER → 2024-08-15 10:04 | Outpatient (BNVA) | payer OTHER, SELFPAY | PROVIDERS: Visit Provider Physician Assistant | DX: R59.0 Localized enlarged lymph nodes (principal) | CPT/HCPCS: 99212 ==

== ENCOUNTER 2025-01-31 00:31 | Emergency (ER) | payer OTHER, SELFPAY ==
--- NOTE | ~2025-01-31 | XR_ITS ---
CLINICAL HISTORY: cp 1 view chest x-ray Comparison: 07/19/2024 Findings: Lung inflation is normal. Cardiac and mediastinal silhouettes are normal. Pulmonary arterial vasculature is normal. There is no pneumothorax or pleural effusion. No consolidative opacities. Osseous structures are normal. IMPRESSION: 1. No acute cardiopulmonary process. This document has been electronically signed by: Jed Alejo III, MD PHD on 01/31/2025 01:32:51
--- NOTE | 2025-01-31 00:33 | ECG_ITS ---
Test Reason : CP Blood Pressure : */* mmHG Vent. Rate : 83 BPM Atrial Rate : 83 BPM P-R Int : 172 ms QRS Dur : 100 ms QT Int : 364 ms P-R-T Axes : 47 45 14 degrees QTcB Int : 427 ms Normal sinus rhythm with sinus arrhythmia Normal ECG When compared with ECG of 11-Aug-2011 09:54, No significant changes seen Referred By: Generic ED Physician Electronically Signed By: Lamine Lyn
[2025-01-31 00:34] VITALS: BP 129/87; PULSE 84; RESP 16; TEMP 36.6; O2SAT 98; BMI 37.2
[2025-01-31 01:01] LABS: MANUAL DIFF FLAG NO
[2025-01-31 01:02] VITALS: BP 117/86; PULSE 104; RESP 17; TEMP 36.7; O2SAT 100
[2025-01-31 01:03] LABS: Hematocrit 37.1 % (37.0-47.0); Hemoglobin 12.1 g/dl (12.0-16.0); Imm Gran Abs Auto 0.03 X10*3/uL (0.00-0.03); Imm Gran Pct Auto 0.4 % (0.0-0.4); Lymphocytes Absolute Auto 3.1 X10*3/uL (1.2-4.9); Mean Corpuscular HGB Conc 32.6 g/dl (31.0-35.0); Mean Corpuscular Hemoglobin 26.7 pg (27.0-33.0); Mean Corpuscular Volume 81.9 fL (80.0-98.0); NRBC Abs Auto 0.000 X10*3/uL (0.0-0.012); NRBC Pct Auto 0.0 /100WBC (0.0-0.2); Platelet Count 317 X10*3/uL (160-400); Red Blood Count 4.53 X10*6/uL (4.20-5.50); White Blood Count 8.3 X10*3/uL (4.8-10.8)
[2025-01-31] MEDS: Magnesium Hydrox/Alum Hydrox 30 ML ORAL.SUSP PO (01:12)
--- NOTE | 2025-01-31 01:12 | ED.CHESTPAIN ---
HPI - Chest Pain General Chief Complaint: Chest Pain Stated Complaint: Chest Pain Time Seen by Provider: 01/31/25 00:59 History of Present Illness HPI narrative: Patient is a 24-year-old female presents today with having epigastric and mid chest pain after lying down. Patient's pain is burning in nature. Improved with sitting up. Patient denies any diaphoresis. Denies any fever chills. No nausea no vomiting. No shortness of breath. Patient is from home. No history of blood clot no leg swelling. No history of being on control pills. No long distance travel. No history of diabetes, hypertension, high cholesterol, smoking, mi. patient from home. No family history of ACS. Denies recreational drugs. Related Data Previous Rx's ?Medication ?Instructions ?Recorded triamcinolone acetonide 0.1 % 1 appl topical DAILY #15 grams 10/06/24 topical cream omeprazole 40 mg capsule,delayed 40 mg PO DAILY #90 caps 01/31/25 release Allergies Allergy/AdvReac Type Severity Reaction Status Date / Time polymyxin B Allergy Eye Verified 01/31/25 00:39 Swelling Review of Systems Review of Systems: Positive chest pain Yes all other systems are reviewed and are negative PMFSH Past Medical History Attestation statement: The following information was validated with the patient. Medical History Encounter to establish care Acute bronchitis COVID Folliculitis barbae Anxiety Surgical History History of bilateral breast reduction surgery Family History Family History Maternal Grandmother Diabetes Father HTN (hypertension) Mother HTN (hypertension) Social History Social History Housing: House Alcohol intake: never Patient Tobacco Use Status: Never used Tobacco Smoked in Last 30 Days: No e-Cigarette/Vaping Use: Never Used Second Hand Smoke Exposure: No Use of substances other than those prescribed or required for medical reasons: No Advance Directives: No Advance Directives Information Provided: Yes Patient : No service: No Current occupational status: employed 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 Oriented X3. No acute distress. Eyes: Pupils equal, round and reactive to light. ENT: Pharynx normal. Neck: Normal inspection. Neck supple. No lymph nodes noted. No crepitus CVS: Normal heart rate and rhythm. Pulses normal. Normal S1 and S2 Respiratory: No respiratory distress. Breath sounds normal. No Wheezing. No rales Abdomen: Soft and nontender. No rigidity. No distention. good BS x4 Skin: Skin warm and dry. Normal skin color. Normal skin turgor. Extremities: No lower extremity edema. Neurovascular intact to all extremities. No Lacerations. No Rash Neuro: Oriented X 3. No motor deficit. No sensory deficit. Moving all extermities. No slurred speech Medications Administered Discontinued Medications Generic Name Dose Route Start Last Admin Trade Name Freq PRN Reason Stop Dose Admin Al Hydroxide/Mg Hydroxide 30 ml 01/31/25 01:04 01/31/25 01:12 Magnesium Hydrox/Alum Hydrox 30 Ml Oral.Susp PO 01/31/25 01:05 30 ml ONCE ONE Administration Medical Decision Making Medical Decision Making [facility] Narrative: Well-appearing no acute distress. Patient EKG showed a sinus rhythm heart rate is 90 TN QRS QTC normal no acute ST segment elevation patient is 24 years old with no risk factors. Pain atypical for ACS. Nevertheless the chest pain started about an hour ago. Will get 2 sets of enzymes to further delineate. Patient given Maalox for pain. test sent. Liver profile and pancreatic profile sent. Currently in stable condition. Patient's history not consistent with PE. No risk factors for clots. I received sign-out from my colleague Dr. Scott troponin x2 negative patient was given an additional dose of p.o. viscous lidocaine. Differential Diagnosis Differential Diagnoses: The differential diagnosis associated with the presentation includes Admission/Observation Consideration of admission/observation: Escalation of care including admission/observation considered Lab Data [facility] Lab Attestation statement: I reviewed the patient's lab results. 01/31/25 00:55 01/31/25 00:55 Labs: Lab Results 01/31/25 01/31/25 Range/Units 00:55 01:56 WBC 8.3 (4.8-10.8) X10*3/uL RBC 4.53 (4.20-5.50) X10*6/uL Hgb 12.1 (12.0-16.0) g/dl Hct 37.1 (37.0-47.0) % MCV 81.9 (80.0-98.0) fL MCH 26.7 L (27.0-33.0) pg MCHC 32.6 (31.0-35.0) g/dl RDW 12.9 (11.0-16.0) % Plt Count 317 (160-400) X10*3/uL MPV 9.2 L (9.4-12.3) fL Immature Gran % (Auto) 0.4 (0.0-0.4) % Neut % (Auto) 52.9 (45-73) % Lymph % (Auto) 37.2 (20-40) % Boyle % (Auto) 7.7 (2-11) % Eos % (Auto) 1.2 (0-4) % Baso % (Auto) 0.6 (0-2) % Lymph # (Auto) 3.1 (1.2-4.9) X10*3/uL Boyle # (Auto) 0.6 (0.1-1.2) X10*3/uL Eos # (Auto) 0.1 (0.0-0.4) X10*3/uL Baso # (Auto) 0.1 (0.0-0.2) X10*3/uL Abs Immat Gran (auto) 0.03 (0.00-0.03) X10*3/uL Absolute Neuts (auto) 4.4 (2.0-8.3) x10*3/uL Absolute Nucleated RBC 0.000 (0.0-0.012) X10*3/uL Nucleated RBC % (auto) 0.0 (0.0-0.2) /100WBC Sodium 139 (135-145) mmol/L Potassium 3.7 (3.3-5.1) mmol/L Chloride 108 (96-108) mmol/L Carbon Dioxide 23 (22-29) mmol/L Anion Gap 12 (12-20) BUN 10 (9-16) mg/dL Creatinine 0.64 (0.5-1.4) mg/dL Estim Creat Clear Calc 137.8 Estimated GFR > 60 Random Glucose 101 (60-115) mg/dL Calcium 9.1 (8.4-10.2) mg/dL Total Bilirubin 0.3 (0.0-1.0) mg/dL AST 19 (5-31) U/L ALT 14 (0-31) U/L Alkaline Phosphatase 79 (39-117) U/L Troponin I High Sens < 2.7 < 2.7 (<3.5-17.0) ng/L Total Protein 6.8 (6.5-8.0) g/dL Albumin 4.2 (3.5-5.0) g/dL Lipase 23 (8-78) U/L Beta HCG, Quant < 2 mIU/mL Independent Interpretation I performed an independent interpretation of an: EKG (Sinus heart rate is 90 TN QRS QTC normal no acute ST segment elevation) and Plain X-Ray (My interpretation patient's chest x-ray is grossly negative no pneumonia no pneumothorax.) Social Determinants Patient?s care significantly limited by Social Determinants of Health including: Problems related to primary support group Discharge Plan Discharge Clinical Impression: Chest pain, Acid reflux Patient Disposition: Home, Self-Care Instructions: Chest Pain (ED), GERD (Gastroesophageal Reflux Disease) (DC) Additional Instructions: Please follow-up with your primary care physician tomorrow. If you have any worsening or new symptoms, please return to the emergency room or call 911 Prescriptions: New omeprazole 40 mg capsule,delayed release(DR/EC) 40 mg PO DAILY Qty: 90 0RF No Action triamcinolone acetonide 0.1 % cream 1 appl topical DAILY Qty: 15 0RF Print Language: Swedish
[2025-01-31 01:25] LABS: Alanine Aminotransferase 14 U/L (0-31); Albumin Level 4.2 g/dL (3.5-5.0); Alkaline Phosphatase 79 U/L (39-117); Anion Gap 12 (12-20); Aspartate Amino Transferase 19 U/L (5-31); Blood Urea Nitrogen 10 mg/dL (9-16); Calcium 9.1 mg/dL (8.4-10.2); Carbon Dioxide 23 mmol/L (22-29); Chloride 108 mmol/L (96-108); Creatinine Clr Calc Pharmacy 137.8; Estimated Glomerular Filt Rate > 60; Lipase 23 U/L (8-78); Potassium 3.7 mmol/L (3.3-5.1); Sodium 139 mmol/L (135-145); Total Protein 6.8 g/dL (6.5-8.0)
[2025-01-31 01:28] LABS: Troponin-I High Sensitivity < 2.7 ng/L (<3.5-17.0)
[2025-01-31 01:51] VITALS: BP 120/78; PULSE 79; RESP 19; TEMP 36.5; O2SAT 98
[2025-01-31 02:37] LABS: Troponin-I High Sensitivity < 2.7 ng/L (<3.5-17.0)
[2025-01-31 03:00] VITALS: BP 120/78; PULSE 79; RESP 19; TEMP 36.5; O2SAT 98
== END 2025-01-31 03:01 | disposition home or self-care (01) ==
PROVIDERS: Emergency Medicine Emergency Medical Services; Emergency Provider Emergency Medicine
DX: R07.9 Chest pain, unspecified (principal); K21.9 Gastro-esophageal reflux disease without esophagitis; R10.13 Epigastric pain
CPT/HCPCS: 36415; 71045; 80053; 83690; 84484; 84702; 85025; 93005; 99283; 99285

== ENCOUNTER → 2025-01-31 00:33 | Outpatient (BNV) | payer OTHER, SELFPAY | PROVIDERS: Emergency Provider Emergency Medicine; Visit Provider Internal Medicine Cardiovascular Disease | DX: R07.9 Chest pain, unspecified (principal) | CPT/HCPCS: 93010 ==

== ENCOUNTER → 2025-01-31 01:04 | Outpatient (BNV) | payer OTHER, SELFPAY | PROVIDERS: Emergency Provider Emergency Medicine; Visit Provider Radiology Diagnostic Radiology | DX: R07.9 Chest pain, unspecified (principal) | CPT/HCPCS: 71045 ==

== ENCOUNTER 2025-05-11 01:57 | Emergency (ER) | payer OTHER, SELFPAY ==
[2025-05-11 01:59] VITALS: BP 152/83; PULSE 86; RESP 20; TEMP 36.3; O2SAT 100; BMI 36.7
--- OUTSIDE RECORDS SUMMARY | 2025-05-11 02:10 | XMS_ITS | Encounter Summary ---
Author Organization [facility] Address [address] [place] [address] Phone Care Team Providers Care Senior Front End Engineer Name Role Phone Tamela Vieyra MD Primary Care Provider Encounter Details Date Type Department Care Team (Late st Contact Info) Description 01/10/2010 Documentation [facility] [place] Family Medicine [address] [place] [address] Family Medicine, Physician [address], [place] [id number] Social History Tobacco Use Types Packs/Day Years Used Date Smoking Tobacco: Never Assessed Comments Unknown Sex and Gender Information Value Date Recorded Sex Assigned at Not on file Legal Sex Female 4:58 PM EDT Gender Identity Not on file Sexual Orientation Not on file documented as of this encounter Plan of Treatment Not on file documented as of this encounter Visit Diagnoses Not on filedocumented in this encounter Care Teams Senior Front End Engineer Relationship Specialty Start Date End Date Tamela Vieyra MD [address] [place] [address] PCP - General 03/02/17 11/02/22 documented as of this encounter
--- OUTSIDE RECORDS SUMMARY | 2025-05-11 02:10 | XMS_ITS | Encounter Summary ---
Author Organization [facility] Address [address] [place] [address] Phone Care Team Providers Care Associate Professor Name Role Phone Tamela Vieyra MD Primary Care Provider Encounter Details Date Type Department Care Team (Late st Contact Info) Description 03/08/2017 Conversion Encounter [place] [facility] [address] [place] [address] Social History Tobacco Use Types Packs/Day Years Used Date Smoking Tobacco: Never Comments:Never smoker Comments Unknown Sex and Gender Information Value Date Recorded Sex Assigned at Not on file Legal Sex Female 4:58 PM EDT Gender Identity Not on file Sexual Orientation Not on file documented as of this encounter Plan of Treatment Not on file documented as of this encounter Visit Diagnoses Not on filedocumented in this encounter Care Teams Associate Professor Relationship Specialty Start Date End Date Tamela Vieyra MD [address] [place] [address] PCP - General 03/02/17 11/02/22 documented as of this encounter
--- OUTSIDE RECORDS SUMMARY | 2025-05-11 02:10 | XMS_ITS | Clinical Summary ---
Author Organization [employer] Address [address] [place] [address] Care Team Providers Care Tin Stacker Name Role Phone Unavailable Primary Care Provider Unavailabl e Allergies No known active allergies Medications Sod Fluoride-Potass ium Nitrate (PreviDent 5000 Sensitive) 1.1-5 % gelIndications: Dental caries on smooth surface limited to enamel Please smear pea-sized amount on toot brush at night and brush for 2 mins. Do not rinse after brushing . 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 Social History Tobacco Use Types Packs/Day Years Used Date Smoking Tobacco: Never Smokeless Tobacco: Never Tobacco Cessation:Counseling Given: Not Answered Comments Unknown Sex and Gender Information Value Date Recorded Sex Assigned at Female 05/22/2022 10:30 AM EDT Legal Sex Female 10:30 AM EDT Gender Identity Female 05/22/2022 10:30 AM EDT Sexual Orientation Straight 05/22/2022 10 :30 AM EDT Last Filed Vital Signs Vital Sign Reading Time Taken Comments Blood Pressure 118/79 10/26/2022 10:01 AM EDT Pulse - - Temperature - - Respiratory Rate - - Oxygen Saturation - - Inhaled Oxygen Concentration - - Weight - - Height - - Body Mass Index - - Plan of Treatment Health Maintenance Due Date Last Done Comments Dental Prophylaxis 2000 Dental X-Ray: Bitewings 2000 Dental X-Ray: Full Mouth 2000 Depression Screening 2000 HIV Screening 2000 SDOH Screening 2000 Disability Screening 2000 Alcohol/Substance Use Screening 2012 Family Planning (PISQ) 2015 Hepatitis C Screening 2018 Pap Smear 2021 Dental Oral Exam 10/10/2023 04/10/2023 COVID-19 Vaccine (2024- season) 2025 11/27/2020, 11/06/2020 Influenza Vaccine (#1) 2025 , 06/23/2022, 05/04/2021, Additional history exists Tobacco Screening 08/26/2025 08/26/2024 DTaP/Tdap/Td Vaccines (8 - Td or Tdap) 06/23/2032 06/23/2022, 07/26/2012, 07/06/2004, Additional history exists Zoster Vaccines (1 of 2) 2050 RSV Patients and Patients Aged 60 years or older (1 - 1-dose 75+ series) 2075 Hepatitis B Vaccines Completed 01/29/2001, 2000, 2000 Pneumococcal Vaccine: Pediatrics (0 to 5 Years) and At-Risk Patients (6 to 49) Years Aged Out 04/05/2001, 2000, 2000, Additional history exists No longer eligible based on patient's age to complete this topic HIB Vaccines Completed 07/05/2001, 09/21, 2000, Additional history exists IPV Vaccines Completed 07/06/2004, 06/22, 2000, Additional history exists HPV Vaccines Completed 11/25/2013, 09/20, 07/26/2012 Hepatitis A Vaccines Completed 11/25/2013, 11/29/19 11 Meningococcal Vaccine Completed 04/03/2017, 013 Meningococcal B Vaccine Completed 01/28/2020, 11/13 RSV under 20 months Aged Out No longe r eligible based on patient's age to complete this topic Rotavirus Vaccines Aged Out No longer eligible based on patient's age to complete this topic Procedures Procedure Name Priority Date/Time Associated Diagnosis Comments PERIODIC ORAL EVALUATION - ESTABLISHED PATIENT Routine 04/10/2023 10:00 AM EDT from Last 3 Months or Most Recently Relevant to Health Maintenance Insurance [facility] MEDICAID STAND ADULT [facility] MEDICAID STAND ADULT
--- OUTSIDE RECORDS SUMMARY | 2025-05-11 02:10 | XMS_ITS | Encounter Summary ---
Author Organization [employer] [facility] Address [address] [facility] [address] [facility] [address] [place] [address] Care Team Providers Care Reservations Sales Supervisor Name Role Phone Unavailable Primary Care Provider Unavailabl e Encounter Details Date Type Department Care Team (Latest Contact Info) Description 03/31/2020 Abstract [facility] CONVERSIONS Dental, Provider, DDS Social History Tobacco Use Types Packs/Day Years Used Date Smoking Tobacco: Never Assessed Comments Unknown Sex and Gender Information Value Date Recorded Sex Assigned at Female 05/22/2022 10:30 AM EDT Legal Sex Female 10:30 AM EDT Gender Identity Female 05/22/2022 10:30 AM EDT Sexual Orientation Straight 05/22/2022 10 :30 AM EDT documented as of this encounter Plan of Treatment Not on file documented as of this encounter Visit Diagnoses Not on filedocumented in this encounter
--- OUTSIDE RECORDS SUMMARY | 2025-05-11 02:10 | XMS_ITS | Encounter Summary ---
Author Organization [employer] Address [address] [place] [address] Care Team Providers Care Ice Cream Server Name Role Phone Unavailable Primary Care Provider Unavailabl e Reason for Visit * Reason Onset Date Comments emergency dental no insurance 08/26/2024 Encounter Details Date Type Department Care Team (Late st Contact Info) Description 08/26/2024 Telephone [facility] [address] [place] [address] Tamela Torres DDS emergency dental no insurance Social History Tobacco Use Types Packs/Day Years Used Date Smoking Tobacco: Never Smokeless Tobacco: Never Comments Unknown Sex and Gender Information Value Date Recorded Sex Assigned at Female 05/22/2022 10:30 AM EDT Legal Sex Female 10:30 AM EDT Gender Identity Female 05/22/2022 10:30 AM EDT Sexual Orientation Straight 05/22/2022 10 :30 AM EDT documented as of this encounter Miscellaneous Notes * Telephone Encounter - Kailyn Bell - 08/26/2024 8:37 AM EST Patient is self pay. She is coming into [facility] managed care department at 10 to speak with them concerning assitance with insurance and/or SFS and then heading over to [facility] for emergency visit DR documented in this encounter Plan of Treatment Not on file documented as of this encounter Visit Diagnoses Not on filedocumented in this encounter
--- OUTSIDE RECORDS SUMMARY | 2025-05-11 02:10 | XMS_ITS | Clinical Summary ---
Author Organization [facility] Address [address] [place] [id number] Phone Care Team Providers Care Camper Assembler Name Role Phone Unavailable Primary Care Provider Unavailabl e Allergies No known active allergies Medications omeprazole 40 MG capsuleIndicati ons:Other acute gastritis without hemorrhage Take 1 capsule (40 mg total) by mouth daily. 30 capsule 2 03/29/2021 Active Active Problems Problem Noted Date Diagnosed Date S/P bilateral breast reduction 03/29/2021 Overview (03/29/2021): February 2021 Anxiety 11/13/2018 Overview (11/13/2018): Referred for counseling Large breasts 11/13/2018 Overview (11/13/2018): Pt asked for number of surgeons who perform breast reduction Immunizations Immunization Administration Dates Next Due DTaP 5 07/06/2004, 2,2000,08/10,2000 H1N1 07/22/2009,06/11/2009 HPV, Quadrivalent 11/25/2013,10/07/2012,07/26/19 13 Hep A, ped/adol 11/25/2013,11/28/2010 Hep B, ped/adol 01/29/2001,2000,2000 Hib (PRP-T) 07/05/2001, 1,2000,06/05 IPV 07/06/2004, 1,2000,06/05 Influenza Split 07/26/2012 Influenza, injectable, quadr ivalent, preservative free 05/04/2021,06/07/2020,11/13/2018,04/03 Influenza, injectable, trivalent 07/22/2009,08/23,08/14/2007 MMR 07/06/2004,04/05/2001 Meningococcal B Trumenba 01/28/2020,11/13/2018 Meningococcal Conj (Menactra) MCV4P 04/03/2017,0 07/26/2012 Pneumococcal Conjugate 04/05/2001,2000,2000,06/05 Tdap 07/26/2012 Varicella 09/02/2008,04/05/2001 Family History Medical History Relation Name Comments Hypertension Father Emile Obesity Father Emile Diabetes Maternal Grandmother Hypertension Mother Glorivee Obesity Mother Glorivee Relation Name Status Comments Father Emile Alive Father: Hyperte nsion Obesity Maternal Grandmother Mother Glorivee Alive Mother: Hyperte nsion Obesity Other Alive grandmother: Di abetes mellitus Sister 1 Delinette Alive Sister: Alive a nd well, Alive and well Sister 2 Demaris Alive Sister: Alive a nd well, Alive and well Social History Tobacco Use Types Packs/Day Years Used Date Smoking Tobacco: Never Smokeless Tobacco: Never Tobacco Cessation:Counseling Given: Yes Comments:Never smoker Alcohol Use Standard Drinks/Week Comments No 0 (1 standard drink = 0.6 oz pur e alcohol) Hunger/Food Answer Date Recorded In the last 12 months, did y ou or your family ever eat less than you felt you should because there wasn't enough money for food? No 01/27/2021 Stable Housing Answer Date Recorded Are you worried that in the next 2 months you may not have stable housing? No 01/27/2021 Transportation Concerns Answer Date Rec orded In the last 12 months, have you or your family ever had to go without healthcare because you didn't have a way to get there? No 01/27/2021 Hazards in Home Answer Date Recorded Think about the place you li ve. Do you have problems with any of the following? Pests (mice or roaches), mold, no/not working smoke detectors, water leaks, no window guards. No 2020 Financing Utilities Answer Date Recorde d In the last 12 months, has t he [employer], gas, oil, or water [employer] threatened to shut off your services in your home? No 01/27/2021 Safety at Home Answer Date Recorded Are you or your family worried about feeling saf e in your home? No 01/27/2021 Outside Support Answer Date Recorded Do you feel that you need mo re support from other people or programs to help you care for yourself or your family? No 01/27/2021 Understanding Health Concerns Answer Da te Recorded Do you need help understandi ng your or your child's healthcare needs (diagnosis, medications, plan, etc.)? No 01/27/2021 Financing Health Concerns Answer Date R ecorded In the last 12 months, was t here a time when your child needed to see a doctor or get medications or supplies but could not because of cost? No 01/27/2021 Missing School or Work Answer Date Bryce rded Did you or your child miss s chool or work because of a health problem that could have been avoided? No 01/27/2021 Comments No Sex and Gender Information Value Date Recorded Sex Assigned at Not on file Legal Sex Female 4:58 PM EDT Gender Identity Not on file Sexual Orientation Not on file Last Filed Vital Signs Vital Sign Reading Time Taken Comments Blood Pressure 119/69 05/04/2021 11:00 AM EDT Pulse 96 05/04/2021 11:00 AM EDT Temperature 36.6 C (97.8 F) 05/04/2021 11:00 AM EDT Respiratory Rate - - Oxygen Saturation - - Inhaled Oxygen Concentration - - Weight 81.3 kg (179 lb 3.2 oz) 05/04/2021 11:00 AM EDT Height 157.5 cm (5' 2 ) 05/04/2021 11:00 AM EDT Body Mass Index 32.78 05/04/2021 11:00 AM EDT Plan of Treatment Health Maintenance Due Date Last Done Comments DTaP,Tdap,and Td Vaccines (7 - Td or Tdap) 07/26/2022 07/26/2012, 07/06/2004, 10/02/2001, Additional history exists Influenza Vaccines (#1) 2025 05/04/20, 06/07/2020, 11/13/2018, Additional history exists COVID-19 Vaccine (3 - 2024-2 6 season) 2025 11/27/2020, 11/06/2020 Hepatitis B Vaccines Completed 01/29/2001, 2000, 2000 Pneumococcal Vaccine Completed 04/05/2001, 2000, 2000, Additional history exists HIB Vaccines Completed 07/05/2001, 09/21, 2000, Additional history exists IPV Vaccines Completed 07/06/2004, 06/22, 2000, Additional history exists MMR Vaccines Completed 07/06/2004, 04/05/2001 Varicella Vaccines Completed 09/02/2008, 04/05/2001 HPV Vaccines Completed 11/25/2013, 09/20, 07/26/2012 Hepatitis A Vaccines Completed 11/25/2013, 11/29/19 Meningococcal Vaccine Completed 04/03/2017, 013 Men B Vaccine Completed 01/28/2020, 11/13/2018 Procedures * Due to [facility] law, this organization might not be sharing sensitive test results. Procedure Name Priority Date/Time Associated Diagnosis Comments CHLAMYDIA AND GONORRHEA, AMPLIFIED Routine 01/27/2021 1:35 PM EDT Screening examination for bacterial and spirochetal disease from Last 3 Months or Most Recently Relevant to Health Maintenance Results * Due to [employer] law, this organization might not be sharing sensitive test results. * Chlamydia and Gonorrhoea, Amplified (01/27/2021 1:35 PM EDT) Chlamydia Trachomatis, DNA Probe NEGATIVE (NEG) [facility] Comment: No Chlamydia Trachomatis RNA detected in this patient's sample (REFERENCE RANGE/NORMAL VALUE: NOT DETECTED) Note: This test uses relief charge nurse- mediated amplification method to detect rRNA from C. Trachomatis URINE GC AMP PROBE NEGATIVE (NEG) [facility] Comment: No Neisseria Gonorrhoeae RNA detected in this patient's sample (REFERENCE RANGE/NORMAL VALUE: NOT DETECTED) NOTE: This test uses relief charge nurse-mediated amplification method to detect rRNA from N.Gonorrhoeae. A negative result does not preclude infection. In the case of a negative urine result, testing of an endocervical(female) or urethral (male) specimen is recommended if there is high clinical suspicion of infection. Due to very high sensitivity of Nucleic Acid Amplification Test, false positive results may occur. Therefore, specimen handling is extremely important. In patients in whom the disease is unlikely, additional sample for testing should be considered after an initial positive result. The performance characteristics of this test have not been evaluated in children. The Aptima Combo2 assay is not intended for the evaluation of suspected sexual abuse or for other medico-legal indications. The ordering provider should assess if the patient had consensual sex without risk of sexual abuse. Consult the [facility] if needed. Contact phone number . Therapeutic failure or success cannot be determined with the Aptima Combo2 assay since nucleic acid may persist following appropriate antimicrobial therapy. The Centers for Disease Control and Prevention (CDC) recommends confirmatory retesting using culture or a different nucleic acid amplification test when positive results occur, if indicated. Testing performed or reported by [facility], a Service of [facility], [facility] [place] [address] Bill Chaidez MD, [place] Urine 01/27/2021 1:35 PM EDT 01/27/2021 9:41 PM EDT us Tamela Vieyra MD LAB MICROBIOLOGY - GENERAL ORDERABLES Final Result [facility] from Last 3 Months or Most Recently Relevant to Health Maintenance
--- OUTSIDE RECORDS SUMMARY | 2025-05-11 02:10 | XMS_ITS | Encounter Summary ---
Author Organization [facility] Address [address] [place] [id number] Phone Care Team Providers Care Derrickman Helper Name Role Phone Tamela Vieyra MD Primary Care Provid er Encounter Details Date Type Department Care Team (Late st Contact Info) Description 02/15/2021 Procedure Pass OR Admitting Dept - Virtual Department [address] [place] [address] Social History Tobacco Use Types Packs/Day Years Used Date Smoking Tobacco: Never Smokeless Tobacco: Never Alcohol Use Standard Drinks/Week Comments Never 0 (1 standard drink = 0.6 oz pur e alcohol) no Comments No Sex and Gender Information Value Date Recorded Sex Assigned at Not on file Legal Sex Female 12:27 PM EST Gender Identity Not on file Sexual Orientation Not on file documented as of this encounter Plan of Treatment Not on file documented as of this encounter Visit Diagnoses Not on filedocumented in this encounter Care Teams Derrickman Helper Relationship Specialty Start Date End Date Tamela Vieyra MD [address] [place] [id number] PCP - General Pediatrics 08/25/20 documented as of this encounter Additional Source Comments The information contained in this document represents components of the legal health record. It is not the complete legal health record.[facility]
--- OUTSIDE RECORDS SUMMARY | 2025-05-11 02:10 | XMS_ITS | Clinical Summary ---
Author Organization [facility] Address [address] [place] [phone] Phone Care Team Providers Care Charter Representative Name Role Phone Tamela Vieyra MD Primary Care Provid er Allergies No known active allergies Medications omeprazole (PRILOSEC) 20 MG tablet Take 20 mg by mouth daily. Active Active Problems Problem Noted Date Diagnosed Date Hypertrophy of breast Family History Relation Status Comments Father Alive Mother Alive Social History Tobacco Use Types Packs/Day Years Used Date Smoking Tobacco: Never Smokeless Tobacco: Never Alcohol Use Standard Drinks/Week Comments Never 0 (1 standard drink = 0.6 oz pur e alcohol) no Education Answer Date Recorded Are you interested in more education? Not on kaity e 11/17/2022 Are you concerned about learning? Not on file 11/17/2022 No 11/17/2022 No 11/17/2022 Digital Access Answer Date Recorded No 12/16/2022 No 12/16/2022 No 12/16/2022 Reliable internet access at home? Not on file 12/16/2022 Device with a working camera? Not on file Comments No Sex and Gender Information Value Date Recorded Sex Assigned at Not on file Legal Sex Female 12:27 PM EST Gender Identity Not on file Sexual Orientation Not on file Last Filed Vital Signs Vital Sign Reading Time Taken Comments Blood Pressure 132/73 02/15/2021 1:45 PM EDT Pulse 110 02/15/2021 1:45 PM EDT Temperature 37.2 C (99 F) 02/15/2021 1:45 PM EDT Respiratory Rate 15 02/15/2021 1:05 PM EDT Oxygen Saturation 97% 02/15/2021 1:45 PM EDT Inhaled Oxygen Concentration - - Weight 82.6 kg (182 lb) 02/15/2021 6:19 AM EDT Height 154.9 cm (5' 1 ) 02/15/2021 6:19 AM EDT Body Mass Index 34.39 02/15/2021 6:19 AM EDT Plan of Treatment Health Maintenance Due Date Last Done Comments DEPRESSION SCREENING 2012 SMOKING Hx and SMOKELESS TOBACCO SCREENING 2013 HEPATITIS C SCREENING 2018 HIV ONE-TIME SCREENING (18-65 YEARS) 2018 PAP SMEAR 2021 Adult Td,Tdap Booster 07/26/2022 07/26/2012 INFLUENZA VACCINE (#1) 2025 , 06/07/2020, 11/13/2018, Additional history exists COVID-19 VACCINE ( season) 2025 11/27/2020, 11/06/2020 PNEUMOCOCCAL VACCINES (0-49 years) Aged Out 04/05/2001, 2000, 2000, Additional history exists No longer eligible based on patient's age to complete this topic HIB VACCINES Completed 07/05/2001, 09/21, 2000, Additional history exists HEPATITIS A VACCINES Completed 11/25/2013, 11/29/19 HPV VACCINES Completed 11/25/2013, 09/20, 07/26/2012 MENINGOCOCCAL VACCINES (ACWY) Completed 04/03/2017, 07/26/2012 MENINGOCOCCAL VACCINES (B) Completed 01/28/2020, Medical Devices Not on file Insurance [facility] [employer] [facility] [employer] [address] [place] [address] [employer] Advance Directives For more information, please contact: [phone] (9AM - 5PM [facility], Sunday-Sunday) * Full Code (Latest Code Status on File) Date Activated Date Inactivated Comments 02/15/2021 6:10 AM Question Answer Comments Code Status Confirmed With: Other (specify below ) Code Discussion Comments: periop Care Teams Charter Representative Relationship Specialty Start Date End Date Tamela Vieyra MD [address] [place] [id number] PCP - General Pediatrics 08/25/20 Additional Source Comments The information contained in this document represents components of the legal health record. It is not the complete legal health record.[facility]
--- OUTSIDE RECORDS SUMMARY | 2025-05-11 02:10 | XMS_ITS | Encounter Summary ---
Author Organization [facility] Address [address] [place] [phone] Phone Care Team Providers Care Finish Patcher Name Role Phone Tamela Vieyra MD Primary Care Provider Encounter Details Date Type Department Care Team (Late st Contact Info) Description 08/17/2011 Documentation [facility] Family Medicine [address] [place] [address] Family Medicine, Physician [address] [place] [id number] Social History Tobacco Use Types Packs/Day Years [...] on filedocumented in this encounter Care Teams Finish Patcher Relationship Specialty Start Date End Date Tamela Vieyra MD [address] [place] [address] PCP - General 03/02/17 11/02/22 documented as of this encounter
--- OUTSIDE RECORDS SUMMARY | 2025-05-11 02:10 | XMS_ITS | Encounter Summary ---
Author Organization [facility] Address [address] [place] [address] Phone Care Team Providers Care Interior Design Director Name Role Phone Tamela Vieyra MD Primary Care Provider [phone] Encounter Details Date Type Department Care Team (Late st Contact Info) Description 11/16/2010 Documentation [facility] [place] [facility] [address] [place] [address] Family Medicine, Physician [address] [phone] Social History Tobacco Use Types Packs/Day Years [...] on filedocumented in this encounter Care Teams Interior Design Director Relationship Specialty Start Date End Date Tamela Vieyra MD [address] [place] [address] PCP - General 03/02/17 11/02/22 documented as of this encounter
--- NOTE | 2025-05-11 02:41 | ED.EAR ---
HPI - Ear Problem General Chief complaint: Ear Problems Stated complaint: left ear pain Time Seen by Provider: 05/11/25 02:40 Source: patient Mode of arrival: ambulatory Limitations: no limitations History of Present Illness ED Provider: Javier PERALTA HPI Narrative: The patient is a 25-year-old female presenting to the ED reporting 2 weeks ago she was experiencing right ear pain which subsequently resolved. The patient reports tonight she use a Q-tip in her left ear when she developed pain in the left ear. Patient denies associated clear bloody otorrhea. The patient reports pain is increased when she lays down, denies history of diabetes, denies associated fever, rhinorrhea, cough, dysphagia, decreased hearing, recent sick contacts, or recent trauma. Related Data Previous Rx's ?Medication ?Instructions ?Recorded triamcinolone acetonide 0.1 % 1 appl topical DAILY #15 grams 10/06/24 topical cream omeprazole 40 mg capsule,delayed 40 mg PO DAILY #90 caps 01/31/25 release Allergies Allergy/AdvReac Type Severity Reaction Status Date / Time polymyxin B Allergy Eye Verified 05/11/25 02:01 Swelling Review of Systems Review of Systems: Yes all other systems are reviewed and are negative [facility] Past Medical History Medical History Encounter to establish care Acute bronchitis COVID Folliculitis barbae Anxiety Surgical History History of bilateral breast reduction surgery Family History Family History Maternal Grandmother Diabetes Father HTN (hypertension) Mother HTN (hypertension) Social History Social History Housing: House Alcohol intake: never Patient Tobacco Use Status: Never used Tobacco e-Cigarette/Vaping Use: Never Used Second Hand Smoke Exposure: No Advance Directives: No Advance Directives Information Provided: No service: No Current occupational status: employed Current occupation: [employer] Current occupational exposures/hazards: No Sexual orientation: Straight/Heterosexual Gender identity: Female Cognitive needs: No Hearing needs: No Vision needs: Yes Physical Exam Vital Signs: Vital Signs: Last Vital Signs Temp 97.3 F 05/11/25 01:59 Pulse 86 05/11/25 01:59 Resp 20 05/11/25 01:59 BP 152/83 H 05/11/25 01:59 Pulse Ox 100 05/11/25 01:59 O2 Del Method Room Air 05/11/25 01:59 BMI result Body Mass Index 36.7 CONSTITUTIONAL: The patient appears non-toxic, well nourished and in no acute distress. Vital signs as documented. HEAD: Atraumatic, normocephalic. EYES: EOMs grossly intact, pupils equal, conjunctiva clear, no exudate. ENT: Nares patent, no discharge. Airway patent, no audible stridor, visible mucosa is pink and moist without noted lesions. Posterior pharynx demonstrates midline nonedematous uvula, no peritonsillar or tonsillar swelling, no tonsillar exudate. Bilateral TMs are intact and unremarkable, no erythema, air-fluid levels, purulence, or bulging. The patient's bilateral TMJs are nontender. No trismus. No evidence of trauma. NECK: trachea is midline, no anterior cervical lymphadenopathy bilaterally. No obvious masses or gross abnormalities. CHEST: Symmetric movement, normal appearance. LUNGS: Non-labored work of breathing. CARDIAC: No evidence of hypoperfusion. ABDOMEN: Nondistended, no obvious injury. : Deferred. EXTREMITIES: Moves all extremities spontaneously without reported pain. No obvious injury or deformity noted. NEURO: Alert and oriented x3, CN II-XII appear grossly intact. Cerebellar Functioning grossly intact. Speech clear and appropriate. SKIN: Warm, dry, color appropriate. No rashes or lesions noted. Medical Decision Making Medical Decision Making MDM Narrative: 3:07 AM 05/11/2025 (Milton PERALTA): The patient is a 25-year-old female presenting to the ED reporting 2 weeks ago she was experiencing right ear pain which subsequently resolved. The patient reports tonight she use a Q-tip in her left ear when she developed pain in the left ear. Patient denies associated clear bloody otorrhea. The patient reports pain is increased when she lays down, denies history of diabetes, denies associated fever, rhinorrhea, cough, dysphagia, decreased hearing, recent sick contacts, or recent trauma. On exam the patient's bilateral TMs are unremarkable, no perforation, erythema, or air-fluid levels. The patient's bilateral ear canals are unremarkable. No indication for antibiotics, no evidence of acute emergent process. Patient will be treated with anti-inflammatories and discharged to follow up with PCP. Admission/Observation Consideration of admission/observation: Escalation of care including admission/observation considered Prescription Management I considered prescription management with: Pain Medication Discharge Plan Discharge Clinical Impression: Ear pain Qualifiers: Laterality: left Qualified Code(s): H92.02 - Otalgia, left ear Patient Disposition: Home, Self-Care Instructions: Earache (ED) Additional Instructions: Thank you for choosing [facility] for your care today. At this time there is no indication for admission to the hospital or continued ED observation, and it is safe to discharge you home. Thankfully your examination today shows no evidence of a ruptured eardrum, inner ear infection, outer ear infection, or other dangerous cause for your ear pain. The exact cause of your pain is not entirely clear, it may be related to your use of a Q-tip earlier this evening however seeing as there was no perforation of your eardrum there was no indication for emergent treatment or antibiotic therapy. You should take alternating (staggered) doses of ibuprofen 600mg and Tylenol 1000mg every 4 hours as needed for any additional pain. Please follow up with your primary care physician for re-evaluation, additional management of your symptoms, and continued preventative care. If you do not have a primary care physician, please call the [facility] at [phone] to establish a new primary care physician. While waiting to establish your new primary care physician, you can call our Walk-in [facility] at [phone] for non-emergency needs. Please return to the emergency department if you develop a severe or sudden change in your symptoms, a fever over 100.4 that does not improve with Tylenol or Ibuprofen, recurrent vomiting, or any other new or worsening symptoms or concerns. Prescriptions: No Action triamcinolone acetonide 0.1 % cream 1 appl topical DAILY Qty: 15 0RF omeprazole 40 mg capsule,delayed release(DR/EC) 40 mg PO DAILY Qty: 90 0RF Referrals: Zoraida Loya MD [Primary Care Provider, Pediatrics] Clinical Impression: Ear pain Print Language: Sinhala
[2025-05-11 03:10] VITALS: BP 152/83; PULSE 86; RESP 20; TEMP 36.3; O2SAT 100
== END 2025-05-11 03:10 | disposition home or self-care (01) ==
PROVIDERS: Emergency Provider Emergency Medicine; PCP Specialist
DX: H92.02 Otalgia, left ear (principal)
CPT/HCPCS: 99283

== ENCOUNTER 2025-07-01 09:49 | Outpatient (REF) | payer OTHER, SELFPAY ==
[2025-07-01 11:10] LABS: MANUAL DIFF FLAG NO
[2025-07-01 11:54] LABS: Hematocrit 40.7 % (37.0-47.0); Hemoglobin 13.0 g/dl (12.0-16.0); Imm Gran Abs Auto 0.02 X10*3/uL (0.00-0.03); Imm Gran Pct Auto 0.3 % (0.0-0.4); Lymphocytes Absolute Auto 2.3 X10*3/uL (1.2-4.9); Mean Corpuscular HGB Conc 31.9 g/dl (31.0-35.0); Mean Corpuscular Hemoglobin 26.5 pg (27.0-33.0); Mean Corpuscular Volume 83.1 fL (80.0-98.0); NRBC Abs Auto 0.000 X10*3/uL (0.0-0.012); NRBC Pct Auto 0.0 /100WBC (0.0-0.2); Platelet Count 322 X10*3/uL (160-400); Red Blood Count 4.90 X10*6/uL (4.20-5.50); White Blood Count 6.5 X10*3/uL (4.8-10.8)
[2025-07-01 12:51] LABS: Alanine Aminotransferase 13 U/L (0-31); Albumin Level 4.5 g/dL (3.5-5.0); Alkaline Phosphatase 79 U/L (39-117); Anion Gap 10 (12-20); Aspartate Amino Transferase 20 U/L (5-31); Blood Urea Nitrogen 11 mg/dL (9-16); Calcium 9.2 mg/dL (8.4-10.2); Carbon Dioxide 24 mmol/L (22-29); Chloride 111 mmol/L (96-108); Cholesterol 200 mg/dL (<200); Estimated Glomerular Filt Rate > 60; HDL Cholesterol 45 mg/dL (>40); Potassium 3.9 mmol/L (3.3-5.1); Sodium 141 mmol/L (135-145); Total Protein 7.2 g/dL (6.5-8.0); Triglycerides 125 mg/dL (<150)
[2025-07-01 13:09] LABS: Folate 9.6 ng/mL (> or = 4.0); Vitamin B12 334 pg/mL (200-900)
== END 2025-07-01 09:50 | disposition home or self-care (01) ==
LOC: HO.LAB 09:49
DX: Z13.220 Encounter for screening for lipoid disorders (principal); Z00.00 Encounter for general adult medical examination without abnormal findings; Z13.29 Encounter for screening for other suspected endocrine disorder; Z13.21 Encounter for screening for nutritional disorder; Z13.0 Encounter for screening for diseases of the blood and blood-forming organs and certain disorders involving the immune mechanism; F41.1 Generalized anxiety disorder; E66.9 Obesity, unspecified; K21.9 Gastro-esophageal reflux disease without esophagitis; N93.9 Abnormal uterine and vaginal bleeding, unspecified; Z68.38 Body mass index [BMI] 38.0-38.9, adult
CPT/HCPCS: 36415; 80053; 80061; 82306; 82607; 82746; 84443; 85025; 90471; 90656; 99395

== ENCOUNTER 2025-07-01 09:49 | Outpatient (AMB) | payer OTHER, SELFPAY ==
--- NOTE | 2025-07-01 09:53 | A.OFFPC_ITS ---
Vital Signs 07/01/25 09:54 Height 5 ft 1 in Weight 203 lb 8 oz BMI 38.4 BP 124/68 Blood Pressure Location Lt brachial Position Sitting Respiration 18 Pulse 85 Pulse Source Pulse Oximeter Temp Source Temporal Artery Scan Pulse Oximetry (%) 100 Oxygen Delivery Method Room Air Intake Visit Reasons: Annual Exam Nursing Home Administrator Required: No Accompanied by: Self / Same As Patient Allergies polymyxin B Allergy (Verified 07/01/25 10:24) Eye Swelling Medication List - Last Reconciled 07/01/25 by Brenda Schroeder PA-C omeprazole 40 mg PO DAILY triamcinolone acetonide 0.1% 1 appl topical DAILY Tobacco use date assessed: 07/01/25 Dental Screening Dental Screen Date: 07/01/25 Did you have a dental visit in the last 12 months?: No Did you have a dental problem in the last 6 months where you did not have access to dental care?: No Was dental information given to patient?: No HPI Annual Exam HPI Details 25 year old female with past history of GERD, anxiety, obesity, ALLISON last seen 06/2024 coming in for annual exam. Presenting for an annual physical examination. For gastroesophageal reflux disease, she was prescribed omeprazole after an emergency room visit four months ago, but found it ineffective. She has been taking her mother's medication, sucralfate, for heartburn, which she reports is more effective. The patient has a history of anxiety and was previously prescribed hydroxyzine by a former doctor, which she took as needed. She reports that her anxiety is now better managed but still occurs, particularly when she is home alone. The patient has a history of eczema, which she describes as currently being terrible . She experiences intermittent intermenstrual spotting, which can sometimes occur one to two weeks after her period and last until her next one, but this does not happen every cycle. 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 1. Little interest or pleasure in doing things: not at all 2. Feeling down, depressed, or hopeless: not at all 3. Trouble falling or staying asleep, or sleeping too much: not at all 4. Feeling tired or having little energy: not at all 5. Poor appetite or overeating: not at all 6. Feeling bad about yourself - or that you are a failure or have let yourself or your family down: not at all 7. Trouble concentrating on things, such as reading the newspaper or watching television: not at all 8. Moving or speaking so slowly that other people could have noticed. Or the opposite - being so fidgety or restless that you have been moving around a lot more than usual: not at all 9. Thoughts that you would be better off or of hurting yourself in some way: not at all Total score: 0 Depression Screening Interpretation: Negative Depression Screening Done: Yes Source: Developed by Drs. Denys Monk, Bia Mario, Paul Coyne and colleagues, with an educational laurie from [email or web address]. Thrive Questionnaire Date Thrive assessed: 07/01/25 I am a: Patient What is your living situation today?: I have a steady place to live Within the past 12 months, did the food you bought not last and you didn't have the money to get more?: Never true Within the past 12 months, did you worry whether your food would run out before you got money to buy more?: Never true Do you have trouble paying for medicines?: No Do you have trouble getting transportation to medical appointments?: No Do you have trouble paying your heating and electricity bill?: No Do you have trouble taking care of your child, family member or friend?: No Do you have trouble with day-to-day activities such as bathing, preparing meals, shopping, managing finances, etc.?: No Are you currently unemployed and looking for a job?: No Are you interested in more education?: No Please select the resources that you would like help with: None Currently or been in a relationship where the following occur: No concerns reported THRIVE Score: 0 AUDIT C Alcohol Use Questionnaire (AUDIT-C) 1. How often do you have a drink containing alcohol?: Never Total Score: 0 ALLISON-7 AMB Questionnaire ALLISON-7 Date ALLISON - 7 assessed: 07/01/25 Feeling nervous, anxious, or on edge: 1 = Several days Not being able to stop or control worryin = Several days Worrying too much about different things: 1 = Several days Trouble relaxin = Several days Being so restless that it is hard to sit still: 1 = Several days Becoming easily annoyed or irritable: 1 = Several days Feeling afraid as if something awful might happen: 0 = Not at all Total ALLISON-7 score (0-4 normal; 5-9 mild; 10-14 moderate; 15-21 severe): 6 Source: Developed by Drs. Denys Monk, Bia Mario, Paul Coyne and colleagues, with an educational laurie from [email or web address]. Review of Systems Const Denies body aches, Denies chills, Denies fever(s), Denies headache(s) and Denies poor appetite Eyes Reports no additional complaints ENT Denies dysphagia, Denies dizziness, Denies headache(s) and Denies odynophagia Card Denies chest pain, Denies syncope, Denies edema, Denies irregular heart rhythm, Denies lightheadedness and Denies dyspnea Resp Denies cough and Denies dyspnea GI Denies abdominal pain, Denies constipation, Denies dysphagia, Reports dyspepsia, Reports heartburn, Denies diarrhea, Reports nausea (w/ GERD ), Denies odynophagia and Denies vomiting Details: occasional spotting between periods Reports as per HPI Musc Reports no additional complaints and Denies abnormal gait Skin/Breast Reports system reviewed and no additional complaints, except as documented Neuro Denies abnormal gait, Denies dizziness, Denies syncope and Denies headache(s) Psych Reports no additional complaints Physical exam (Primary Care) Vital Signs: Last Vital Signs Pulse 85 07/01/25 09:54 Resp 18 07/01/25 09:54 BP 124/68 07/01/25 09:54 Pulse Ox 100 07/01/25 09:54 Oxygen Delivery Method Room Air 07/01/25 09:54 BMI result Body Mass Index 38.4 Tobacco/Smoking Status: Tobacco use Status Tobacco use date assessed 07/01/25 07/01/25 10:00 Patient Tobacco Use Status Never used Tobacco 07/01/25 10:00 e-Cigarette/Vaping Use Never Used 07/01/25 10:00 PHQ-9: PHQ-9 Score PHQ-9: Total score 0 07/01/25 10:53 Depression Screening Interpretation: Negative Thrive Assessment: Date of Thrive Assessment Date Thrive assessed 07/01/25 07/01/25 10:00 Currently or been in a relationship where the following occur: No concerns reported Const General: cooperative, healthy appearing, comfortable and no acute distress Orientation/consciousness: patient oriented x3 HENMT Head: Yes normocephalic Ears: hearing grossly normal bilaterally, external ears normal, TM's normal bilaterally and EAC's normal General nose exam: Normal external nose present Face and sinus: Yes normal facial exam and Yes sinuses nontender Mouth: Normal oral and palatal mucosa present and tongue normal Throat: Yes posterior oropharynx normal Eyes General: appearance normal, both eyes and all related structures Conjunctivae: conjunctivae normal Pupils: Equal, round and reactive pupils present EOM: EOMs intact bilaterally and No Nystagmus present Neck Neck: Yes normal visual inspection, Yes full ROM and Yes no lymphadenopathy Chest Chest palpation & inspection: normal inspection of the chest Resp Effort & Inspection: normal respiratory effort Auscultation: clear to auscultation bilaterally, no crackles, no rales, no rhonchi, no wheezes and breath sounds present Cardio Rate: regular rate Rhythm: regular rhythm Peripheral pulses: radial pulses present and dorsalis pedis present GI Inspection: Yes normal to inspection and No Abdominal wall edema Palpation (GI): Soft to palpation, not firm and nontender Auscultation: normal bowel sounds Rectal Exam - Female: deferred General: Yes no CVA tenderness Back/Spine/Pelvis Back: no CVA tenderness Skin General skin exam: no rashes or lesions noted Neuro General: patient oriented x3 Cranial nerves: Yes Equal, round and reactive pupils present, Yes Midline tongue present, Yes Ability to bilaterally elevate shoulders present and No Nystagmus present Gait exam (Neuro): Normal gait present Extrem General: Yes normal to inspection, Yes full ROM, No no pedal edema and No edema Psych Speech and movement: Normal speech and movement present Affect: normal affect Insight: Good insight present (Psych) Judgement: Good judgement present (Psych) Office Procedures Flu Questionnaire Does the patient have a severe egg allergy?: No Does the patient have severe life threatening allergies?: No Does the patient have a fever or illness today?: No Has the patient ever had Guillain-[place] Syndrome?: No Has the patient ever had any past reaction to a flu shot?: No Immunizations Fluarix [id number] (PF) 45 mcg (15 mcg x 3)/0.5 mL IM syringe Performing Provider: Brenda Schroeder PA-C [facility] Administered by: Neda Martin LPN on 07/01/25 10:52 Dose Route Admin Location Dispensed Lot Number Expiration Date [facility] Manufacturing Associate 0.5 mL IM Left Deltoid 0.5 mL [id number] 01/19/26 [id number] [employer] Direct VIS Given Date VIS Provided VIS Publication Date 07/01/25 Single Vaccine 24 Eligibility Eligibility Date Funding Source Not [facility] Eligible 07/01/25 Private Coding Level of Care Code Est Pt Prev Care [id number]([id number]) Diagnoses Adult general medical exam Z00.00 ALLISON (generalized anxiety disorder) F41.1 Obesity (BMI 30.0-34.9) E66.9 GERD (gastroesophageal reflux disease) K21.9 Abnormal uterine bleeding (AUB) N93.9 Assessment & Plan Assessment & Plan (1) Adult general medical exam: Code(s): Z00.00 - Encounter for general adult medical examination without abnormal findings Category: Medical Plan: Patient is up-to-date on all recommended routine screenings and vaccinations for her age. I did order for updated blood work as she is overdue including cholesterol panel. The patient is scheduled for a yearly follow-up, pending normal blood work results. She will be contacted if there are any abnormal findings in her labs that require an earlier appointment. (2) ALLISON (generalized anxiety disorder): Code(s): F41.1 - Generalized anxiety disorder Category: Medical Plan: A prescription for hydroxyzine has been sent to the pharmacy for as-needed use, as the patient prefers not to be on a daily medication. The patient declined a referral for a new counselor at this time, stating she has been managing her anxiety better since she last saw a therapist. (3) Obesity (BMI 30.0-34.9): Code(s): E66.9 - Obesity, unspecified Category: Medical Plan: Healthy diet and regular exercise is encouraged. (4) GERD (gastroesophageal reflux disease): Code(s): K21.9 - Gastro-esophageal reflux disease without esophagitis Category: Medical Plan: Avoid trigger foods such as citrus, tomato products, soda, caffeine, spicy foods and other foods that may be irritating to your stomach. Avoid laying flat 3-4 hours after eating and elevate the head of the bed 30 degrees to prevent acid from moving into the esophagus. Plan to trial sucralfate as needed (5) Abnormal uterine bleeding (AUB): Code(s): N93.9 - Abnormal uterine and vaginal bleeding, unspecified Category: Medical Plan: The patient was reassured that intermittent spotting can be normal. She was advised to discuss this with her group director experience at her upcoming appointment at the end of the month. Plan This note was constructed using voice recognition software. While every effort has been made to ensure accuracy and pelota maker, still areas may have been included sometimes these areas may affect the content or meeting of the given symptoms. Total time spent caring for the patient today was 30 minutes. This includes time spent before the visit reviewing the chart, time spent during the visit, and time spent after the visit and documentation. Patient was informed and verbally consented to the use of an ambient scribe for clinic note documentation during this visit. Orders: Orders Vitamin B12 and Folate Today Z13.21 - Encounter for screening for nutritional disorder Complete Blood Count Auto Diff Today Z13.0 - Encounter for screening for diseases of the blood and blood-forming organs and certain disorders involving the immune mechanism Lipid Panel Today Z13.220 - Encounter for screening for lipoid disorders TSH reflex Free T4 Today Z13.29 - Encounter for screening for other suspected endocrine disorder Vitamin D 25-OH Total Today Z13.21 - Encounter for screening for nutritional disorder Comprehensive Met. Panel Today Z00.00 - Encounter for general adult medical examination without abnormal findings Influenza [id number] Immunization Today Z23 - Encounter for immunization Medications: New sucralfate 1 g PO TID 90 tabs 0RF Refilled hydroxyzine HCl 25 mg PO BID PRN 60 tabs 0RF anxiety triamcinolone acetonide 0.1% 1 appl topical DAILY 15 grams 0RF Discontinued omeprazole Discontinued Reason: Patient no longer taking 40 mg PO DAILY 90 caps 0RF
[2025-07-01 09:54] VITALS: BP 124/68; PULSE 85; RESP 18; O2SAT 100; BMI 38.4
== END 2025-07-01 11:10 | disposition home or self-care (01) ==
LOC: HO.HMCH 09:50
DX: Z00.00 Encounter for general adult medical examination without abnormal findings (principal); F41.1 Generalized anxiety disorder; E66.9 Obesity, unspecified; Z68.38 Body mass index [BMI] 38.0-38.9, adult; K21.9 Gastro-esophageal reflux disease without esophagitis; N93.9 Abnormal uterine and vaginal bleeding, unspecified; Z23 Encounter for immunization